=== PATIENT | female | born 1945 | race Caucasian/White ===

== ENCOUNTER 2017-02-09 13:10 | Inpatient (IN) | payer MEDICARE, OTHER ==
[~2017-02-09] VITALS: Ht 157.5 cm; Wt 119.1 kg
[~2017-02-09 13:10] MED LIST: ALLO1POW PO; AMLO10TA4 PO; ASPI-515 PO; BUME0.5T PO; CEFD300C37 PO; FLUO10CA13 PO; GABA100C PO; GABA800T PO; HOME O2 NS; HYDR-3240 PO; LISI-167 PO; SIMV10TA3 PO; SULF1TAB23 PO
[2017-02-09] MEDS ORDERED: LIDOCAINE 1%, 20ML INFIL ONE (14:00)
[2017-02-09] MEDS ORDERED: DIPH,PERTUSS(ACELL),TET VAC/PF 0.5 ML IM-VACC ONE ×2 (14:00→14:07)
[2017-02-09] MEDS ORDERED: LIDOCAINE 1%, 20ML ONE (14:07)
[2017-02-09 14:29] LABS: ASPARTATE AMINO TRANSFERASE 17 U/L (15-37); BLOOD UREA NITROGEN 46 mg/dL (7-18)
[2017-02-09 14:34] LABS: IS PT STATUS REG ER OR PRE ER? YES
[2017-02-09] MEDS ORDERED: BACITRACIN ZINC OINT 500U/GM, 0.9 GM ONE (15:09)
[2017-02-09] MEDS ORDERED: MULT-6 PO (16:29)
[2017-02-09] MEDS ORDERED: ALLO100T64 PO (16:29)
[2017-02-09] MEDS ORDERED: FLUO20TA25 PO (16:29)
[2017-02-09] MEDS ORDERED: CA C1TAB62 PO (16:29)
[2017-02-09] MEDS ORDERED: IRON1TAB62 PO (16:29)
[2017-02-09] MEDS ORDERED: RIVA20TA PO (16:29)
[2017-02-09] MEDS ORDERED: DOCUSATE 100 MG CAPSULE PO PRN (17:30)
[2017-02-09] MEDS ORDERED: HYDROcodone/APAP 5/325 TABLET PO PRN (17:30)
[2017-02-09] MEDS ORDERED: BISACODYL 10 MG SUPP PR PRN (17:30)
[2017-02-09] MEDS ORDERED: ONDANSETRON 2MG/ML, 2ML IVP PRN (17:30)
[2017-02-09] MEDS ORDERED: POLYETHYLENE GLYCOL 17 GM PACKET PO PRN (17:30)
[2017-02-09] MEDS ORDERED: TEMAZEPAM 15 MG CAPSULE PO PRN (17:30)
[2017-02-09] MEDS ORDERED: ACETAMINOPHEN 325 MG TABLET PO PRN (17:30)
[2017-02-09 20:25] VITALS: BP_SYST 142; BP_SYST 151; BP_SYST 153; BP_DIAS 78; BP_DIAS 82; BP_DIAS 88
[2017-02-09] MEDS: SODIUM CHLORIDE FLUSH 10ML SYR IVF SCH (21:00)
[2017-02-09] MEDS ORDERED: GABAPENTIN 400 MG CAPSULE PO SCH (21:00)
[2017-02-09] MEDS: SIMVASTATIN 10 MG TABLET PO SCH (23:17)
[2017-02-09] MEDS: CEFTRIAXONE PMX 1GM/50ML 50 ML IV SCH (23:17)
[2017-02-10 00:31] LABS: IS PT STATUS REG ER OR PRE ER? NO
[2017-02-10 01:10] VITALS: BP_SYST 137; BP_SYST 142; BP_SYST 143; BP_DIAS 77; BP_DIAS 81; BP_DIAS 93
[2017-02-10 06:12] LABS: BLOOD UREA NITROGEN 40 mg/dL (7-18)
[2017-02-10 06:20] LABS: IS PT STATUS REG ER OR PRE ER? NO
[2017-02-10 08:34] VITALS: BP_SYST 126; BP_SYST 135; BP_SYST 146; BP_DIAS 80; BP_DIAS 84; BP_DIAS 89
[2017-02-10] MEDS: FLUOXETINE 20 MG CAPSULE PO SCH (08:59)
[2017-02-10] MEDS: BUMETANIDE 1 MG TABLET PO SCH (08:59)
[2017-02-10] MEDS: CALCIUM CARBONATE 500 MG TABLET PO SCH (08:59)
[2017-02-10] MEDS: ASPIRIN 81 MG TABLET EC PO SCH (08:59)
[2017-02-10] MEDS: ALLOPURINOL 100 MG TABLET PO SCH (08:59)
[2017-02-10] MEDS: MULTIVITAMIN 1 TABLET PO SCH (08:59)
[2017-02-10] MEDS: GABAPENTIN 400 MG CAPSULE PO SCH (09:00)
[2017-02-10] MEDS: SODIUM CHLORIDE FLUSH 10ML SYR IVF SCH ×2 (09:00→21:04)
[2017-02-10] MEDS: RIVAROXABAN 20 MG TABLET PO SCH (11:14)
[2017-02-10 12:55] VITALS: BP 118/64
[2017-02-10 19:13] VITALS: BP_SYST 103; BP_SYST 142; BP_DIAS 52; BP_DIAS 90
[2017-02-10] MEDS ORDERED: GABAPENTIN 100 MG CAPSULE PO SCH (21:00)
[2017-02-10] MEDS: SIMVASTATIN 10 MG TABLET PO SCH (21:04)
[2017-02-10] MEDS: CEFTRIAXONE PMX 1GM/50ML 50 ML IV SCH (23:11)
[2017-02-11 01:43] VITALS: BP 107/69
[2017-02-11 07:02] VITALS: BP_SYST 126; BP_SYST 148; BP_SYST 150; BP_DIAS 79; BP_DIAS 82; BP_DIAS 87
[2017-02-11] MEDS: BUMETANIDE 1 MG TABLET PO SCH (09:00)
[2017-02-11] MEDS: SODIUM CHLORIDE FLUSH 10ML SYR IVF SCH (09:00)
[2017-02-11] MEDS: CALCIUM CARBONATE 500 MG TABLET PO SCH (09:17)
[2017-02-11] MEDS: RIVAROXABAN 20 MG TABLET PO SCH (09:17)
[2017-02-11] MEDS: ALLOPURINOL 100 MG TABLET PO SCH (09:17)
[2017-02-11] MEDS: FLUOXETINE 20 MG CAPSULE PO SCH (09:17)
[2017-02-11] MEDS: MULTIVITAMIN 1 TABLET PO SCH (09:17)
[2017-02-11] MEDS: ASPIRIN 81 MG TABLET EC PO SCH (09:17)
[2017-02-11] MEDS: GABAPENTIN 400 MG CAPSULE PO SCH (09:18)
== END 2017-02-11 13:18 | disposition home or self-care (01) | DRG 74 ==
LOC: ED 16:02 → EDIP 16:03 → ED 16:41 → SUATTDRO 16:42 → 5SO 20:19 → DCLOUNGE 02-11 12:37
PROVIDERS: ADMIT Family Medicine
DX: E11.42 Type 2 diabetes mellitus with diabetic polyneuropathy (principal); D68.69 Other thrombophilia; I13.0 Hypertensive heart and chronic kidney disease with heart failure and stage 1 through stage 4 chronic kidney disease, or unspecified chronic kidney disease; J96.10 Chronic respiratory failure, unspecified whether with hypoxia or hypercapnia; Z68.42 Body mass index [BMI] 45.0-49.9, adult; G90.8 Other disorders of autonomic nervous system; I48.91 Unspecified atrial fibrillation; E78.5 Hyperlipidemia, unspecified; N18.3 Chronic kidney disease, stage 3 (moderate); E11.22 Type 2 diabetes mellitus with diabetic chronic kidney disease; D63.8 Anemia in other chronic diseases classified elsewhere; F17.200 Nicotine dependence, unspecified, uncomplicated; J44.9 Chronic obstructive pulmonary disease, unspecified; I50.9 Heart failure, unspecified; M10.9 Gout, unspecified; E66.01 Morbid (severe) obesity due to excess calories; W18.39XA Other fall on same level, initial encounter; R29.6 Repeated falls; S00.03XA Contusion of scalp, initial encounter; Z91.81 History of falling; Z95.0 Presence of cardiac pacemaker; Z79.01 Long term (current) use of anticoagulants; Y93.89 Activity, other specified; Y92.098 Other place in other non-institutional residence as the place of occurrence of the external cause; Y99.8 Other external cause status; Z90.710 Acquired absence of both cervix and uterus; Z82.49 Family history of ischemic heart disease and other diseases of the circulatory system
CPT/HCPCS: 36415; 70450; 71010; 72125; 80048; 80053; 81001; 82533; 82607; 82746; 83880; 84443; 84484; 85025; 85610; 85730; 87040; 87086; 90471; 90715; 93005; 93880; C8929; J0696

== ENCOUNTER → 2017-04-23 | Outpatient (CLI) | payer MEDICARE, OTHER ==
[~2017-04-23] MED LIST changes: +ALLO100T64 PO; +CA C1TAB62 PO; +FLUO20TA25 PO; +IRON1TAB62 PO; +MULT-6 PO; +OXYC-96 PO; +PROAIR INH; +RIVA20TA PO
== END | disposition home or self-care (01) ==
LOC: PETCFH 13:40
PROVIDERS: ATTEND Internal Medicine
DX: R91.8 Other nonspecific abnormal finding of lung field (principal)
CPT/HCPCS: 78815; A9552

== ENCOUNTER 2017-04-24 07:48 | Day surgery (SDC) | payer MEDICARE, OTHER ==
[~2017-04-24] VITALS: Ht 160 cm; Wt 132.7 kg
[~2017-04-24 07:48] MED LIST changes: -OXYC-96 PO; -PROAIR INH
[2017-04-24 08:48] VITALS: BP 184/96
[2017-04-24] MEDS ORDERED: OXYC-96 PO (09:04)
[2017-04-24] MEDS ORDERED: PROAIR INH (09:04)
[2017-04-24] MEDS ORDERED: LACTATED RINGERS 1,000 ML IV SCH (09:05)
[2017-04-24] MEDS ORDERED: FENTANYL PF 100 MCG/2ML ONE (09:28)
[2017-04-24 09:33] LABS: BLOOD UREA NITROGEN 43 mg/dL (7-18)
[2017-04-24 09:44] LABS: ASPARTATE AMINO TRANSFERASE 18 U/L (15-37)
[2017-04-24] MEDS ORDERED: PROPOFOL 10 MG/ML, 20ML ONE (10:16)
[2017-04-24] MEDS ORDERED: NALOXONE 0.4 MG/ML, 1ML ONE (10:16)
[2017-04-24] MEDS ORDERED: SUCCINYLCHOLINE 20 MG/ML, 10ML ONE (10:16)
[2017-04-24] MEDS ORDERED: ONDANSETRON 2MG/ML, 2ML ONE (10:16)
[2017-04-24] MEDS ORDERED: PHENYLEPHRINE 10 MG/ML ONE (10:16)
[2017-04-24] MEDS ORDERED: DEXAMETHASONE 4 MG/ML, 1ML ONE (10:16)
[2017-04-24] MEDS ORDERED: ONDANSETRON 2MG/ML, 2ML IVPush PRN (11:30)
[2017-04-24] MEDS ORDERED: OXYcodone 5 MG/5 ML ORAL.SOL UDC PO PRN (11:30)
[2017-04-24] MEDS ORDERED: MEPERIDINE/PF 25MG/0.5ML IVPush PRN (11:30)
[2017-04-24] MEDS ORDERED: FENTANYL PF 100 MCG/2ML IV PRN (11:30)
[2017-04-24] MEDS ORDERED: LABETALOL 5MG/ML, 20ML IV PRN (11:30)
[2017-04-24] MEDS ORDERED: HYDROmorphone 1 MG/ML, 1ML IV PRN (11:30)
[2017-04-24] MEDS ORDERED: ALBUTEROL SULFATE 2.5 MG/3 ML NPPB PRN (11:30)
[2017-04-24] MEDS ORDERED: hydrALAzine 20 MG/ML, 1ML IV PRN (11:30)
[2017-04-24] MEDS ORDERED: PROMETHAZINE 25 MG/ML, 1ML IV PRN (11:30)
[2017-04-24] MEDS ORDERED: MIDAZOLAM 1 MG/ML, 2ML IV PRN (11:30)
[2017-04-24] MEDS ORDERED: ALBUTEROL SULFATE 2.5 MG/3 ML ONE (12:54)
== END 2017-04-24 15:40 ==
LOC: OUT 07:48
PROVIDERS: ATTEND Internal Medicine
DX: R91.8 Other nonspecific abnormal finding of lung field (principal); J98.8 Other specified respiratory disorders; E11.22 Type 2 diabetes mellitus with diabetic chronic kidney disease; I12.9 Hypertensive chronic kidney disease with stage 1 through stage 4 chronic kidney disease, or unspecified chronic kidney disease; N18.3 Chronic kidney disease, stage 3 (moderate); E11.40 Type 2 diabetes mellitus with diabetic neuropathy, unspecified; J44.9 Chronic obstructive pulmonary disease, unspecified; E78.5 Hyperlipidemia, unspecified; M10.9 Gout, unspecified; Z95.0 Presence of cardiac pacemaker; Z87.891 Personal history of nicotine dependence; Z99.81 Dependence on supplemental oxygen; Z79.82 Long term (current) use of aspirin
CPT/HCPCS: 31624; 31625; 31626; 31627; 31628; 36415; 71010; 76001; 80053; 82962; 85025; 88112; 88172; 88173; 88177; 88305; 94640; 94660; J0330; J1100; J2310; J2370; J2405; J2704; J3010; J7120

== ENCOUNTER → 2017-06-25 | Outpatient (CLI) | payer MEDICARE, OTHER ==
[~2017-06-25] MED LIST changes: +OXYC-293 PO; +PROAIR INH
== END | disposition home or self-care (01) ==
LOC: PETCFH 09:57
PROVIDERS: ATTEND Internal Medicine
DX: R91.1 Solitary pulmonary nodule (principal); I51.7 Cardiomegaly
CPT/HCPCS: 78815; A9552

== ENCOUNTER 2017-11-20 14:45 | Inpatient (IN) | payer MEDICARE, OTHER ==
[~2017-11-20] VITALS: Ht 157.5 cm; Wt 134.4 kg
[2017-11-20] MEDS ORDERED: ALBU18HF INH (15:06)
[2017-11-20] MEDS ORDERED: NYST1000 PO (15:06)
[2017-11-20] MEDS ORDERED: FAMO-79 PO (15:06)
[2017-11-20] MEDS ORDERED: BISA10SU2 PR (15:06)
[2017-11-20] MEDS ORDERED: FERR324T8 PO (15:06)
[2017-11-20] MEDS ORDERED: ONDA4TAB13 SL (15:06)
[2017-11-20] MEDS ORDERED: OXYM15SP8 NAS (15:06)
[2017-11-20] MEDS ORDERED: POTA99TA24 PO (15:06)
[2017-11-20] MEDS ORDERED: AMLO10TA2 PO (15:06)
[2017-11-20] MEDS ORDERED: ACET-1757 PO (15:06)
[2017-11-20] MEDS ORDERED: METO25TA35 PO (15:06)
[2017-11-20 15:22] LABS: BASOPHILS # (AUTO) 0.09 x10^3/uL (0-0.1); BASOPHILS % (AUTO) 1 % (0-1); EOSINOPHILS # (AUTO) 0.01 x10^3/uL (0-0.4); EOSINOPHILS % (AUTO) 0 % (1-7); LYMPHOCYTES # (AUTO) 0.97 x10^3/uL (1-3.4); LYMPHOCYTES % (AUTO) 16 % (22-44); MD NO; MEAN CORPUSCULAR HEMOGLOBIN 28.4 pg (27.0-34.8); MEAN CORPUSCULAR HGB CONC 32.1 g/dL (32.4-35.8); MEAN CORPUSCULAR VOLUME 88.3 fL (80-100); MEAN PLATELET VOLUME 8.2 fL (7.4-10.4); MONOCYTES # (AUTO) 0.66 x10^3/uL (0.2-0.8); MONOCYTES % (AUTO) 11 % (2-9); NEUTROPHILS # (AUTO) 4.32 x10^3/uL (1.8-6.8); NEUTROPHILS % (AUTO) 72 % (42-75); PLATELET COUNT 239 x10^3/uL (130-400); RED BLOOD COUNT 3.11 x10^6/uL (3.82-5.3); RED CELL DISTRIBUTION WIDTH 19.1 % (9.6-15.2)
[2017-11-20 15:30] LABS: INTERNATIONAL NORMALIZED RATIO 1.03 (0.93-1.1); PROTHROMBIN TIME 10.6 Seconds (9.6-11.5)
[2017-11-20] MEDS ORDERED: SODIUM CHLORIDE FLUSH 10ML SYR IVF ONE (15:30)
[2017-11-20 15:34] LABS: ALBUMIN 2.7 g/dL (3.4-5.0); ANION GAP 4 mmol/L (5-15); CALCIUM 8.6 mg/dL (8.5-10.1); CHLORIDE 107 mmol/L (98-107)
[2017-11-20 15:40] LABS: ALANINE AMINOTRANSFERASE 14 U/L (12-78); ALKALINE PHOSPHATASE 113 U/L (45-117); BILIRUBIN,TOTAL 0.3 mg/dL (0.2-1.0); CREATININE 2.07 mg/dL (0.55-1.02); TOTAL PROTEIN 7.5 g/dL (6.4-8.2); TROPONIN I 0.065 ng/mL (0.000-0.045)
[2017-11-20 15:47] LABS: MICROSCOPIC INDICATED
[2017-11-20 16:00] LABS: CULTURE INDICATED? NO
[2017-11-20] MEDS ORDERED: HYDROcodone/APAP 5/325 TABLET PO PRN (17:30)
[2017-11-20] MEDS ORDERED: ACETAMINOPHEN 325 MG TABLET PO PRN (17:30)
[2017-11-20] MEDS ORDERED: hydrALAzine 20 MG/ML, 1ML IVPush PRN (17:30)
[2017-11-20] MEDS ORDERED: TEMAZEPAM 15 MG CAPSULE PO PRN (17:30)
[2017-11-20] MEDS ORDERED: HEPARIN 5,000 UNITS/ML, 1ML SQ SCH (17:30)
[2017-11-20] MEDS ORDERED: ONDANSETRON 2MG/ML, 2ML IVPush PRN (17:30)
[2017-11-20] MEDS ORDERED: morphine SULFATE 10 MG/ML, 1ML IVPush PRN (17:30)
[2017-11-20] MEDS ORDERED: POLYETHYLENE GLYCOL 17 GM PACKET PO PRN (17:30)
[2017-11-20] MEDS ORDERED: FUROSEMIDE 20 MG/2 ML ONE (17:49)
[2017-11-20] MEDS ORDERED: POTASSIUM CHLORIDE 20 MEQ TAB.ER.PRT ONE (17:49)
[2017-11-20] MEDS ORDERED: HEPARIN 5,000 UNITS/ML, 1ML ONE (17:49)
[2017-11-20] MEDS: FUROSEMIDE 20 MG/2 ML IV SCH (17:52)
[2017-11-20] MEDS: POTASSIUM CHLORIDE 20 MEQ TAB.ER.PRT PO SCH (17:52)
[2017-11-20 18:01] LABS: FREE T4 (FREE THYROXINE) 1.01 ng/dL (0.76-1.46); THYROID STIMULATING HORMONE 2.96 mIU/L (0.358-3.740)
[2017-11-20 18:49] VITALS: BP 104/60
[2017-11-20] MEDS: FERROUS GLUCONATE 324 MG TABLET PO SCH ×2 (21:00→22:11)
[2017-11-20] MEDS: GABAPENTIN 300 MG CAPSULE PO SCH ×2 (21:00→22:11)
[2017-11-20] MEDS ORDERED: GABAPENTIN 1000 MG PO SCH (21:00)
[2017-11-20] MEDS: SIMVASTATIN 10 MG TABLET PO SCH (21:00)
[2017-11-20] MEDS ORDERED: SIMVASTATIN 5 MG TABLET ONE (22:06)
[2017-11-20 22:40] LABS: TROPONIN I 0.074 ng/mL (0.000-0.045)
[2017-11-21 01:27] VITALS: BP 122/72
[2017-11-21 04:41] LABS: BASOPHILS # (AUTO) 0.05 x10^3/uL (0-0.1); BASOPHILS % (AUTO) 1 % (0-1); EOSINOPHILS # (AUTO) 0.14 x10^3/uL (0-0.4); EOSINOPHILS % (AUTO) 3 % (1-7); LYMPHOCYTES # (AUTO) 1.13 x10^3/uL (1-3.4); LYMPHOCYTES % (AUTO) 24 % (22-44); MD NO; MEAN CORPUSCULAR HEMOGLOBIN 28.5 pg (27.0-34.8); MEAN CORPUSCULAR HGB CONC 31.4 g/dL (32.4-35.8); MEAN CORPUSCULAR VOLUME 90.7 fL (80-100); MEAN PLATELET VOLUME 8.4 fL (7.4-10.4); MONOCYTES # (AUTO) 0.53 x10^3/uL (0.2-0.8); MONOCYTES % (AUTO) 11 % (2-9); NEUTROPHILS # (AUTO) 2.86 x10^3/uL (1.8-6.8); NEUTROPHILS % (AUTO) 61 % (42-75); PLATELET COUNT 194 x10^3/uL (130-400); RED BLOOD COUNT 2.79 x10^6/uL (3.82-5.3); RED CELL DISTRIBUTION WIDTH 19.1 % (9.6-15.2)
[2017-11-21 04:51] LABS: ALBUMIN 2.3 g/dL (3.4-5.0); ANION GAP 5 mmol/L (5-15); CHLORIDE 108 mmol/L (98-107)
[2017-11-21 04:56] LABS: ALANINE AMINOTRANSFERASE 13 U/L (12-78); ALKALINE PHOSPHATASE 98 U/L (45-117); BILIRUBIN,TOTAL 0.2 mg/dL (0.2-1.0); TOTAL PROTEIN 6.6 g/dL (6.4-8.2); TROPONIN I 0.078 ng/mL (0.000-0.045)
[2017-11-21 05:24] VITALS: BP 106/64
[2017-11-21] MEDS: METOPROLOL SUCCINATE 25 MG TAB.ER.24H PO SCH (05:28)
[2017-11-21 07:38] VITALS: BP 146/58
[2017-11-21] MEDS ORDERED: GABAPENTIN 100 MG CAPSULE PO SCH (09:00)
[2017-11-21] MEDS: GABAPENTIN 300 MG CAPSULE PO SCH ×2 (10:00→22:21)
[2017-11-21] MEDS: FLUOXETINE HCL 20 MG CAPSULE PO SCH (10:00)
[2017-11-21] MEDS: RIVAROXABAN 20 MG TABLET PO SCH (10:00)
[2017-11-21] MEDS: ASPIRIN 81 MG TABLET EC PO SCH (10:00)
[2017-11-21] MEDS: ALLOPURINOL 100 MG TABLET PO SCH (10:00)
[2017-11-21] MEDS: POTASSIUM CHLORIDE 20 MEQ TAB.ER.PRT PO SCH (10:01)
[2017-11-21] MEDS: FUROSEMIDE 20 MG/2 ML IV SCH (10:01)
[2017-11-21] MEDS: MULTIVITAMIN 1 TABLET PO SCH (10:01)
[2017-11-21] MEDS: FERROUS GLUCONATE 324 MG TABLET PO SCH ×2 (10:01→22:20)
[2017-11-21] MEDS: FAMOTIDINE 20 MG TABLET PO SCH (10:01)
[2017-11-21 13:38] VITALS: BP 105/68
[2017-11-21 20:10] VITALS: BP 145/82
[2017-11-21] MEDS: SIMVASTATIN 10 MG TABLET PO SCH (21:00)
[2017-11-21] MEDS ORDERED: SIMVASTATIN 5 MG TABLET ONE (22:07)
[2017-11-22 00:19] VITALS: BP 139/78
[2017-11-22 05:19] LABS: CHLORIDE 108 mmol/L (98-107)
[2017-11-22 05:33] LABS: ANION GAP 7 mmol/L (5-15); CALCIUM 8.1 mg/dL (8.5-10.1); CREATININE 1.96 mg/dL (0.55-1.02)
[2017-11-22] MEDS: METOPROLOL SUCCINATE 25 MG TAB.ER.24H PO SCH (06:05)
[2017-11-22 06:06] VITALS: BP 136/75
[2017-11-22 07:26] VITALS: BP 125/75
[2017-11-22] MEDS: ASPIRIN 81 MG TABLET EC PO SCH (07:53)
[2017-11-22] MEDS: GABAPENTIN 300 MG CAPSULE PO SCH ×2 (07:53→19:58)
[2017-11-22] MEDS: FLUOXETINE HCL 20 MG CAPSULE PO SCH (07:53)
[2017-11-22] MEDS: MULTIVITAMIN 1 TABLET PO SCH (07:54)
[2017-11-22] MEDS: POTASSIUM CHLORIDE 20 MEQ TAB.ER.PRT PO SCH (07:54)
[2017-11-22] MEDS: FAMOTIDINE 20 MG TABLET PO SCH ×2 (07:54→19:59)
[2017-11-22] MEDS: RIVAROXABAN 20 MG TABLET PO SCH (07:54)
[2017-11-22] MEDS: ALLOPURINOL 100 MG TABLET PO SCH (07:54)
[2017-11-22] MEDS: FERROUS GLUCONATE 324 MG TABLET PO SCH ×2 (07:54→19:58)
[2017-11-22] MEDS: FUROSEMIDE 40 MG TABLET PO SCH (07:55)
[2017-11-22 12:25] VITALS: BP 129/73
[2017-11-22 18:29] VITALS: BP 127/79
[2017-11-22] MEDS ORDERED: SIMVASTATIN 5 MG TABLET ONE (19:54)
[2017-11-22] MEDS: SIMVASTATIN 10 MG TABLET PO SCH (19:58)
[2017-11-23 02:58] VITALS: BP 144/82
[2017-11-23] MEDS: METOPROLOL SUCCINATE 25 MG TAB.ER.24H PO SCH (05:38)
[2017-11-23 05:41] VITALS: BP 162/84
[2017-11-23 07:46] VITALS: BP 167/94
[2017-11-23] MEDS ORDERED: GABAPENTIN 400 MG CAPSULE ONE (08:20)
[2017-11-23] MEDS: POTASSIUM CHLORIDE 20 MEQ TAB.ER.PRT PO SCH (08:24)
[2017-11-23] MEDS: GABAPENTIN 400 MG CAPSULE PO SCH (08:24)
[2017-11-23] MEDS: RIVAROXABAN 20 MG TABLET PO SCH (08:24)
[2017-11-23] MEDS: MULTIVITAMIN 1 TABLET PO SCH (08:24)
[2017-11-23] MEDS: FERROUS GLUCONATE 324 MG TABLET PO SCH ×2 (08:24→22:20)
[2017-11-23] MEDS: FUROSEMIDE 40 MG TABLET PO SCH (08:24)
[2017-11-23] MEDS: ALLOPURINOL 100 MG TABLET PO SCH (08:24)
[2017-11-23] MEDS: FLUOXETINE HCL 20 MG CAPSULE PO SCH (08:25)
[2017-11-23] MEDS: ASPIRIN 81 MG TABLET EC PO SCH (08:25)
[2017-11-23] MEDS ORDERED: REGADENOSON 0.4 MG/5 ML SYRINGE ONE (12:26)
[2017-11-23 14:14] VITALS: BP 127/76
[2017-11-23] MEDS ORDERED: GABAPENTIN 100 MG CAPSULE PO SCH (21:00)
[2017-11-23 22:17] VITALS: BP 133/73
[2017-11-23] MEDS: FAMOTIDINE 20 MG TABLET PO SCH (22:19)
[2017-11-23] MEDS: SIMVASTATIN 10 MG TABLET PO SCH (22:20)
[2017-11-24 00:53] VITALS: BP 130/76
[2017-11-24] MEDS: METOPROLOL SUCCINATE 25 MG TAB.ER.24H PO SCH (06:05)
[2017-11-24 07:24] VITALS: BP 148/73
[2017-11-24] MEDS: GABAPENTIN 400 MG CAPSULE PO SCH (07:54)
[2017-11-24] MEDS: POTASSIUM CHLORIDE 20 MEQ TAB.ER.PRT PO SCH (07:55)
[2017-11-24] MEDS: FERROUS GLUCONATE 324 MG TABLET PO SCH (07:55)
[2017-11-24] MEDS: RIVAROXABAN 20 MG TABLET PO SCH (07:55)
[2017-11-24] MEDS: ALLOPURINOL 100 MG TABLET PO SCH (07:55)
[2017-11-24] MEDS: ASPIRIN 81 MG TABLET EC PO SCH (07:55)
[2017-11-24] MEDS: FUROSEMIDE 40 MG TABLET PO SCH (07:55)
[2017-11-24] MEDS: MULTIVITAMIN 1 TABLET PO SCH (07:55)
[2017-11-24] MEDS: FLUOXETINE HCL 20 MG CAPSULE PO SCH (07:55)
[2017-11-24] MEDS ORDERED: FURO40TA6 PO (10:33)
[2017-11-24] MEDS ORDERED: METO25TA91 PO (11:17)
[2017-11-24 14:15] VITALS: BP 130/68
== END 2017-11-24 16:12 | DRG 682 ==
LOC: ED 16:41 → EDIP 16:42 → ED 16:59 → 5SO 18:44
PROVIDERS: ADMIT Internal Medicine Pulmonary Disease; ATTEND Internal Medicine Pulmonary Disease
DX: N17.9 Acute kidney failure, unspecified (principal); E43 Unspecified severe protein-calorie malnutrition; I50.33 Acute on chronic diastolic (congestive) heart failure; J96.10 Chronic respiratory failure, unspecified whether with hypoxia or hypercapnia; I27.20 Pulmonary hypertension, unspecified; E11.21 Type 2 diabetes mellitus with diabetic nephropathy; E11.40 Type 2 diabetes mellitus with diabetic neuropathy, unspecified; D68.59 Other primary thrombophilia; I13.0 Hypertensive heart and chronic kidney disease with heart failure and stage 1 through stage 4 chronic kidney disease, or unspecified chronic kidney disease; Z68.43 Body mass index [BMI] 50.0-59.9, adult; N18.4 Chronic kidney disease, stage 4 (severe); E66.01 Morbid (severe) obesity due to excess calories; I48.91 Unspecified atrial fibrillation; E11.22 Type 2 diabetes mellitus with diabetic chronic kidney disease; E78.5 Hyperlipidemia, unspecified; I25.10 Atherosclerotic heart disease of native coronary artery without angina pectoris; J44.9 Chronic obstructive pulmonary disease, unspecified; F32.9 Major depressive disorder, single episode, unspecified; M10.9 Gout, unspecified; R26.2 Difficulty in walking, not elsewhere classified; K21.9 Gastro-esophageal reflux disease without esophagitis; Z87.891 Personal history of nicotine dependence; Z90.710 Acquired absence of both cervix and uterus; Z95.0 Presence of cardiac pacemaker
CPT/HCPCS: 36415; 71045; 78452; 80048; 80053; 81001; 83735; 83880; 84100; 84439; 84443; 84484; 85025; 85610; 85730; 93005; 93017; 93306; 96372; J1644; J2785; A9502; C9898; J1940

== ENCOUNTER 2017-12-06 08:55 | Inpatient (IN) | payer MEDICARE, OTHER ==
[~2017-12-06] VITALS: Ht 157.5 cm; Wt 122.8 kg
[~2017-12-06 08:55] MED LIST changes: +ACET-1757 PO; +ALBU18HF INH; +AMLO10TA2 PO; +BISA10SU2 PR; +FAMO-79 PO; +FERR324T8 PO; +FURO40TA6 PO; +METO25TA35 PO; +METO25TA91 PO; +NYST1000 PO; +ONDA4TAB13 SL; +OXYM15SP8 NAS; +POTA99TA24 PO
[2017-12-06] MEDS ORDERED: SODIUM CHLORIDE FLUSH 10ML SYR IVF ONE (09:30)
[2017-12-06 09:37] LABS: BASOPHILS # (AUTO) 0.02 x10^3/uL (0-0.1); BASOPHILS % (AUTO) 0 % (0-1); EOSINOPHILS % (AUTO) 1 % (1-7); LYMPHOCYTES # (AUTO) 0.53 x10^3/uL (1-3.4); LYMPHOCYTES % (AUTO) 7 % (22-44); MD NO; MEAN CORPUSCULAR HEMOGLOBIN 28.5 pg (27.0-34.8); MEAN CORPUSCULAR HGB CONC 31.4 g/dL (32.4-35.8); MEAN CORPUSCULAR VOLUME 90.8 fL (80-100); MEAN PLATELET VOLUME 8.2 fL (7.4-10.4); MONOCYTES # (AUTO) 0.26 x10^3/uL (0.2-0.8); MONOCYTES % (AUTO) 3 % (2-9); NEUTROPHILS # (AUTO) 6.87 x10^3/uL (1.8-6.8); NEUTROPHILS % (AUTO) 89 % (42-75); PLATELET COUNT 262 x10^3/uL (130-400); RED BLOOD COUNT 2.99 x10^6/uL (3.82-5.3); RED CELL DISTRIBUTION WIDTH 18.9 % (9.6-15.2)
[2017-12-06 09:43] LABS: INTERNATIONAL NORMALIZED RATIO 1.02 (0.93-1.1); PROTHROMBIN TIME 10.5 Seconds (9.6-11.5)
[2017-12-06 09:47] LABS: ALBUMIN 2.5 g/dL (3.4-5.0); ANION GAP 4 mmol/L (5-15); CALCIUM 8.2 mg/dL (8.5-10.1); CHLORIDE 112 mmol/L (98-107); CREATININE 1.74 mg/dL (0.55-1.02)
[2017-12-06 09:51] LABS: TROPONIN I 0.035 ng/mL (0.000-0.045)
[2017-12-06 11:50] LABS: MICROSCOPIC AUTO
[2017-12-06 11:56] LABS: CULTURE INDICATED? NO
[2017-12-06] MEDS ORDERED: FUROSEMIDE 40 MG/4 ML IV ONE (12:00)
[2017-12-06] MEDS ORDERED: FUROSEMIDE 40 MG/4 ML ONE (12:31)
[2017-12-06] MEDS ORDERED: BISACODYL 10 MG SUPP PR PRN (13:00)
[2017-12-06] MEDS ORDERED: ENOXAPARIN 40 MG/0.4 ML SQ SCH (13:00)
[2017-12-06] MEDS ORDERED: ENALAPRILAT 1.25 MG/ML, 2ML IVPush PRN (13:00)
[2017-12-06] MEDS ORDERED: ACETAMINOPHEN 325 MG TABLET PO PRN (13:00)
[2017-12-06] MEDS ORDERED: ONDANSETRON 2MG/ML, 2ML IVPush PRN (13:00)
[2017-12-06] MEDS ORDERED: OXYcodone IR 5MG TABLET PO PRN (13:00)
[2017-12-06] MEDS ORDERED: POLYETHYLENE GLYCOL 17 GM PACKET PO PRN (13:00)
[2017-12-06] MEDS ORDERED: POTA20TA89 PO (13:34)
[2017-12-06] MEDS ORDERED: HYDR-3237 PO (13:34)
[2017-12-06] MEDS ORDERED: CEPH-368 PO (13:34)
[2017-12-06 13:35] LABS: TROPONIN I 0.032 ng/mL (0.000-0.045)
[2017-12-06] MEDS ORDERED: ENOXAPARIN 40 MG/0.4 ML ONE (13:50)
[2017-12-06] MEDS ORDERED: ALBUTEROL SULFATE 2.5 MG/3 ML NPPB PRN (14:00)
[2017-12-06] MEDS: methylPREDNISolone SOD SUCC 125 MG/2 ML IVPush SCH (16:59)
[2017-12-06 20:53] LABS: TROPONIN I 0.031 ng/mL (0.000-0.045)
[2017-12-06] MEDS: SIMVASTATIN 10 MG TABLET PO SCH (22:07)
[2017-12-06] MEDS: GABAPENTIN 400 MG CAPSULE PO SCH (22:07)
[2017-12-06] MEDS: FERROUS SULFATE 325 MG TABLET PO SCH (22:08)
[2017-12-06] MEDS: GABAPENTIN 100 MG CAPSULE PO SCH (22:08)
[2017-12-06] MEDS: FAMOTIDINE 20 MG TABLET PO SCH (22:16)
[2017-12-07] MEDS: methylPREDNISolone SOD SUCC 125 MG/2 ML IVPush SCH ×3 (00:23→16:45)
[2017-12-07 04:00] VITALS: BP 148/59
[2017-12-07 05:45] LABS: ALBUMIN 2.2 g/dL (3.4-5.0); ANION GAP 6 mmol/L (5-15); CALCIUM 8.1 mg/dL (8.5-10.1); CHLORIDE 111 mmol/L (98-107)
[2017-12-07 05:47] LABS: ALANINE AMINOTRANSFERASE 14 U/L (12-78); ALKALINE PHOSPHATASE 106 U/L (45-117); BILIRUBIN,TOTAL 0.4 mg/dL (0.2-1.0); CREATININE 1.69 mg/dL (0.55-1.02); TOTAL PROTEIN 6.8 g/dL (6.4-8.2)
[2017-12-07 06:00] LABS: BASOPHILS % (AUTO) 0 % (0-1); EOSINOPHILS % (AUTO) 0 % (1-7); LYMPHOCYTES # (AUTO) 0.35 x10^3/uL (1-3.4); LYMPHOCYTES % (AUTO) 7 % (22-44); MD NO; MEAN CORPUSCULAR HEMOGLOBIN 28.6 pg (27.0-34.8); MEAN CORPUSCULAR HGB CONC 31.8 g/dL (32.4-35.8); MEAN PLATELET VOLUME 8.5 fL (7.4-10.4); MONOCYTES # (AUTO) 0.01 x10^3/uL (0.2-0.8); MONOCYTES % (AUTO) 0 % (2-9); NEUTROPHILS # (AUTO) 4.36 x10^3/uL (1.8-6.8); NEUTROPHILS % (AUTO) 92 % (42-75); PLATELET COUNT 232 x10^3/uL (130-400); RED BLOOD COUNT 2.84 x10^6/uL (3.82-5.3); RED CELL DISTRIBUTION WIDTH 18.4 % (9.6-15.2)
[2017-12-07] MEDS: METOPROLOL SUCCINATE 25 MG TAB.ER.24H PO SCH (09:00)
[2017-12-07] MEDS: FLUOXETINE HCL 20 MG CAPSULE PO SCH (09:02)
[2017-12-07] MEDS: SENNA/DOCUSATE TABLET PO SCH (09:02)
[2017-12-07] MEDS: AMLODIPINE 5 MG TABLET PO SCH (09:02)
[2017-12-07] MEDS: GABAPENTIN 400 MG CAPSULE PO SCH ×2 (09:02→21:29)
[2017-12-07] MEDS: ASPIRIN 81 MG TABLET EC PO SCH (09:02)
[2017-12-07] MEDS: FERROUS SULFATE 325 MG TABLET PO SCH ×2 (09:03→21:29)
[2017-12-07] MEDS: ALLOPURINOL 100 MG TABLET PO SCH (09:03)
[2017-12-07] MEDS: RIVAROXABAN 20 MG TABLET PO SCH (09:03)
[2017-12-07] MEDS: FAMOTIDINE 20 MG TABLET PO SCH ×2 (09:03→21:29)
[2017-12-07] MEDS: FUROSEMIDE 20 MG/2 ML IV SCH ×2 (09:05→21:29)
[2017-12-07] MEDS: GABAPENTIN 100 MG CAPSULE PO SCH (21:30)
[2017-12-07] MEDS: SIMVASTATIN 10 MG TABLET PO SCH (21:30)
[2017-12-08 04:00] VITALS: BP 139/63
[2017-12-08 04:54] LABS: BASOPHILS % (AUTO) 0 % (0-1); EOSINOPHILS % (AUTO) 0 % (1-7); LYMPHOCYTES % (AUTO) 7 % (22-44); MD NO; MEAN CORPUSCULAR HEMOGLOBIN 28.7 pg (27.0-34.8); MEAN CORPUSCULAR HGB CONC 31.7 g/dL (32.4-35.8); MEAN CORPUSCULAR VOLUME 90.5 fL (80-100); MEAN PLATELET VOLUME 8.7 fL (7.4-10.4); MONOCYTES # (AUTO) 0.04 x10^3/uL (0.2-0.8); MONOCYTES % (AUTO) 1 % (2-9); NEUTROPHILS # (AUTO) 5.39 x10^3/uL (1.8-6.8); NEUTROPHILS % (AUTO) 93 % (42-75); PLATELET COUNT 283 x10^3/uL (130-400); RED BLOOD COUNT 2.97 x10^6/uL (3.82-5.3); RED CELL DISTRIBUTION WIDTH 18.5 % (9.6-15.2)
[2017-12-08 05:01] LABS: CHLORIDE 110 mmol/L (98-107)
[2017-12-08 05:15] LABS: ALANINE AMINOTRANSFERASE 11 U/L (12-78); ALBUMIN 2.2 g/dL (3.4-5.0); ALKALINE PHOSPHATASE 110 U/L (45-117); ANION GAP 5 mmol/L (5-15); BILIRUBIN,TOTAL 0.5 mg/dL (0.2-1.0); CALCIUM 8.3 mg/dL (8.5-10.1); CREATININE 1.83 mg/dL (0.55-1.02); TOTAL PROTEIN 6.9 g/dL (6.4-8.2)
[2017-12-08] MEDS: SENNA/DOCUSATE TABLET PO SCH (09:00)
[2017-12-08] MEDS: ALLOPURINOL 100 MG TABLET PO SCH (09:25)
[2017-12-08] MEDS: methylPREDNISolone SOD SUCC 125 MG/2 ML IVPush SCH ×2 (09:25)
[2017-12-08] MEDS: FERROUS SULFATE 325 MG TABLET PO SCH ×2 (09:26→21:43)
[2017-12-08] MEDS: ASPIRIN 81 MG TABLET EC PO SCH (09:26)
[2017-12-08] MEDS: METOPROLOL SUCCINATE 25 MG TAB.ER.24H PO SCH (09:26)
[2017-12-08] MEDS: GABAPENTIN 400 MG CAPSULE PO SCH ×2 (09:26→21:43)
[2017-12-08] MEDS: FAMOTIDINE 20 MG TABLET PO SCH (09:26)
[2017-12-08] MEDS: AMLODIPINE 5 MG TABLET PO SCH (09:26)
[2017-12-08] MEDS: FLUOXETINE HCL 20 MG CAPSULE PO SCH (09:26)
[2017-12-08] MEDS: RIVAROXABAN 20 MG TABLET PO SCH (09:27)
[2017-12-08 19:27] VITALS: BP_SYST 140; BP_SYST 157; BP_DIAS 78; BP_DIAS 85
[2017-12-08] MEDS: GABAPENTIN 100 MG CAPSULE PO SCH (21:43)
[2017-12-08] MEDS: SIMVASTATIN 10 MG TABLET PO SCH (21:43)
[2017-12-09 01:35] VITALS: BP 150/78
[2017-12-09 05:18] LABS: BASOPHILS # (AUTO) 0.02 x10^3/uL (0-0.1); BASOPHILS % (AUTO) 0 % (0-1); EOSINOPHILS % (AUTO) 0 % (1-7); LYMPHOCYTES # (AUTO) 0.53 x10^3/uL (1-3.4); LYMPHOCYTES % (AUTO) 7 % (22-44); MD NO; MEAN CORPUSCULAR HEMOGLOBIN 28.2 pg (27.0-34.8); MEAN CORPUSCULAR HGB CONC 31.5 g/dL (32.4-35.8); MEAN CORPUSCULAR VOLUME 89.6 fL (80-100); MEAN PLATELET VOLUME 8.3 fL (7.4-10.4); MONOCYTES # (AUTO) 0.26 x10^3/uL (0.2-0.8); MONOCYTES % (AUTO) 4 % (2-9); NEUTROPHILS # (AUTO) 6.76 x10^3/uL (1.8-6.8); NEUTROPHILS % (AUTO) 89 % (42-75); PLATELET COUNT 301 x10^3/uL (130-400); RED BLOOD COUNT 3.08 x10^6/uL (3.82-5.3)
[2017-12-09 05:35] LABS: ANION GAP 5 mmol/L (5-15); CALCIUM 8.4 mg/dL (8.5-10.1); CHLORIDE 108 mmol/L (98-107); CREATININE 2.04 mg/dL (0.55-1.02)
[2017-12-09 07:41] VITALS: BP 145/72
[2017-12-09] MEDS: FAMOTIDINE 20 MG TABLET PO SCH (10:47)
[2017-12-09] MEDS: GABAPENTIN 400 MG CAPSULE PO SCH ×2 (10:47→20:13)
[2017-12-09] MEDS: METOPROLOL SUCCINATE 25 MG TAB.ER.24H PO SCH (10:47)
[2017-12-09] MEDS: ALLOPURINOL 100 MG TABLET PO SCH (10:47)
[2017-12-09] MEDS: ASPIRIN 81 MG TABLET EC PO SCH (10:48)
[2017-12-09] MEDS: RIVAROXABAN 20 MG TABLET PO SCH (10:48)
[2017-12-09] MEDS: AMLODIPINE 5 MG TABLET PO SCH (10:48)
[2017-12-09] MEDS: FERROUS SULFATE 325 MG TABLET PO SCH ×2 (10:48→20:12)
[2017-12-09] MEDS: SENNA/DOCUSATE TABLET PO SCH (10:48)
[2017-12-09] MEDS: FLUOXETINE HCL 20 MG CAPSULE PO SCH (10:48)
[2017-12-09 13:02] VITALS: BP 159/89
[2017-12-09 19:16] VITALS: BP 147/77
[2017-12-09] MEDS: SIMVASTATIN 10 MG TABLET PO SCH (20:13)
[2017-12-09] MEDS: GABAPENTIN 100 MG CAPSULE PO SCH (20:13)
[2017-12-10 03:00] VITALS: BP 157/77
[2017-12-10 07:59] VITALS: BP 167/84
[2017-12-10] MEDS: SENNA/DOCUSATE TABLET PO SCH (08:01)
[2017-12-10] MEDS: GABAPENTIN 400 MG CAPSULE PO SCH ×2 (08:03→20:18)
[2017-12-10] MEDS: FLUOXETINE HCL 20 MG CAPSULE PO SCH (08:04)
[2017-12-10] MEDS: ALLOPURINOL 100 MG TABLET PO SCH (08:04)
[2017-12-10] MEDS: FAMOTIDINE 20 MG TABLET PO SCH (08:05)
[2017-12-10] MEDS: METOPROLOL SUCCINATE 25 MG TAB.ER.24H PO SCH (08:05)
[2017-12-10] MEDS: RIVAROXABAN 20 MG TABLET PO SCH (08:05)
[2017-12-10] MEDS: AMLODIPINE 5 MG TABLET PO SCH (08:05)
[2017-12-10] MEDS: FERROUS SULFATE 325 MG TABLET PO SCH ×2 (08:05→20:18)
[2017-12-10] MEDS: ASPIRIN 81 MG TABLET EC PO SCH (08:05)
[2017-12-10 08:53] LABS: ANION GAP 3 mmol/L (5-15); CALCIUM 8.2 mg/dL (8.5-10.1); CHLORIDE 111 mmol/L (98-107); CREATININE 1.99 mg/dL (0.55-1.02)
[2017-12-10 14:30] VITALS: BP 136/82
[2017-12-10 19:02] VITALS: BP 157/76
[2017-12-10] MEDS: GABAPENTIN 100 MG CAPSULE PO SCH (20:17)
[2017-12-10] MEDS: SIMVASTATIN 10 MG TABLET PO SCH (20:18)
[2017-12-11 01:56] VITALS: BP 164/76
[2017-12-11 08:29] VITALS: BP 172/76
[2017-12-11] MEDS: FLUOXETINE HCL 20 MG CAPSULE PO SCH (09:39)
[2017-12-11] MEDS: SENNA/DOCUSATE TABLET PO SCH (09:40)
[2017-12-11] MEDS: GABAPENTIN 400 MG CAPSULE PO SCH ×2 (09:40→21:08)
[2017-12-11] MEDS: AMLODIPINE 5 MG TABLET PO SCH (09:40)
[2017-12-11] MEDS: ALLOPURINOL 100 MG TABLET PO SCH (09:40)
[2017-12-11] MEDS: METOPROLOL SUCCINATE 25 MG TAB.ER.24H PO SCH (09:40)
[2017-12-11] MEDS: FERROUS SULFATE 325 MG TABLET PO SCH ×2 (09:41→21:08)
[2017-12-11] MEDS: RIVAROXABAN 20 MG TABLET PO SCH (09:41)
[2017-12-11] MEDS: FAMOTIDINE 20 MG TABLET PO SCH (09:41)
[2017-12-11] MEDS: ASPIRIN 81 MG TABLET EC PO SCH (09:41)
[2017-12-11 14:57] VITALS: BP 127/75
[2017-12-11] MEDS ORDERED: ONDANSETRON ODT 4 MG ONE (17:46)
[2017-12-11] MEDS: SIMVASTATIN 10 MG TABLET PO SCH (21:08)
[2017-12-11] MEDS: GABAPENTIN 100 MG CAPSULE PO SCH (21:08)
[2017-12-11 21:28] VITALS: BP 120/78
[2017-12-12 03:47] VITALS: BP 122/82
[2017-12-12 07:43] VITALS: BP 126/80
[2017-12-12] MEDS: SENNA/DOCUSATE TABLET PO SCH (09:00)
[2017-12-12] MEDS: METOPROLOL SUCCINATE 25 MG TAB.ER.24H PO SCH ×2 (09:00→12:02)
[2017-12-12] MEDS: AMLODIPINE 5 MG TABLET PO SCH (11:56)
[2017-12-12] MEDS: RIVAROXABAN 20 MG TABLET PO SCH (11:56)
[2017-12-12] MEDS: FLUOXETINE HCL 20 MG CAPSULE PO SCH (11:56)
[2017-12-12] MEDS: ASPIRIN 81 MG TABLET EC PO SCH (11:56)
[2017-12-12] MEDS: FAMOTIDINE 20 MG TABLET PO SCH (11:56)
[2017-12-12] MEDS: FERROUS SULFATE 325 MG TABLET PO SCH ×2 (11:57→21:17)
[2017-12-12] MEDS: ALLOPURINOL 100 MG TABLET PO SCH (11:57)
[2017-12-12] MEDS: GABAPENTIN 400 MG CAPSULE PO SCH ×2 (12:02→21:17)
[2017-12-12 15:45] VITALS: BP 104/62
[2017-12-12 20:03] VITALS: BP 112/69
[2017-12-12] MEDS: GABAPENTIN 100 MG CAPSULE PO SCH (21:17)
[2017-12-12] MEDS: SIMVASTATIN 10 MG TABLET PO SCH (21:17)
[2017-12-13 00:59] VITALS: BP 107/73
[2017-12-13 07:18] VITALS: BP 112/73
[2017-12-13] MEDS: FERROUS SULFATE 325 MG TABLET PO SCH ×2 (08:44→20:53)
[2017-12-13] MEDS: ASPIRIN 81 MG TABLET EC PO SCH (08:44)
[2017-12-13] MEDS: GABAPENTIN 400 MG CAPSULE PO SCH ×2 (08:44→20:53)
[2017-12-13] MEDS: AMLODIPINE 5 MG TABLET PO SCH (08:45)
[2017-12-13] MEDS: FLUOXETINE HCL 20 MG CAPSULE PO SCH (08:45)
[2017-12-13] MEDS: RIVAROXABAN 20 MG TABLET PO SCH (08:45)
[2017-12-13] MEDS: FAMOTIDINE 20 MG TABLET PO SCH (08:45)
[2017-12-13] MEDS: METOPROLOL SUCCINATE 25 MG TAB.ER.24H PO SCH (08:46)
[2017-12-13] MEDS: ALLOPURINOL 100 MG TABLET PO SCH (08:51)
[2017-12-13] MEDS: SENNA/DOCUSATE TABLET PO SCH (08:51)
[2017-12-13 12:41] VITALS: BP 108/75
[2017-12-13 19:35] VITALS: BP 119/80
[2017-12-13] MEDS: SIMVASTATIN 10 MG TABLET PO SCH (20:53)
[2017-12-13] MEDS: GABAPENTIN 100 MG CAPSULE PO SCH (21:00)
[2017-12-14 02:00] VITALS: BP 105/65
[2017-12-14 07:02] VITALS: BP 108/71
[2017-12-14] MEDS: SENNA/DOCUSATE TABLET PO SCH (09:00)
[2017-12-14] MEDS: METOPROLOL SUCCINATE 25 MG TAB.ER.24H PO SCH (09:53)
[2017-12-14] MEDS: RIVAROXABAN 20 MG TABLET PO SCH (09:54)
[2017-12-14] MEDS: FLUOXETINE HCL 20 MG CAPSULE PO SCH (09:54)
[2017-12-14] MEDS: FERROUS SULFATE 325 MG TABLET PO SCH ×2 (09:54→20:24)
[2017-12-14] MEDS: AMLODIPINE 5 MG TABLET PO SCH (09:54)
[2017-12-14] MEDS: GABAPENTIN 400 MG CAPSULE PO SCH ×2 (09:54→20:24)
[2017-12-14] MEDS: ALLOPURINOL 100 MG TABLET PO SCH (09:54)
[2017-12-14] MEDS: FAMOTIDINE 20 MG TABLET PO SCH (09:54)
[2017-12-14] MEDS: ASPIRIN 81 MG TABLET EC PO SCH (09:54)
[2017-12-14 12:17] VITALS: BP 112/74
[2017-12-14 20:00] VITALS: BP 119/79
[2017-12-14] MEDS: SIMVASTATIN 10 MG TABLET PO SCH (20:23)
[2017-12-14] MEDS: GABAPENTIN 100 MG CAPSULE PO SCH (20:24)
[2017-12-15 02:24] VITALS: BP 119/84
[2017-12-15 05:23] LABS: CREATININE 2.35 mg/dL (0.55-1.02)
[2017-12-15 07:03] VITALS: BP 111/70
[2017-12-15] MEDS: METOPROLOL SUCCINATE 25 MG TAB.ER.24H PO SCH (07:45)
[2017-12-15] MEDS: SENNA/DOCUSATE TABLET PO SCH (07:45)
[2017-12-15] MEDS: GABAPENTIN 400 MG CAPSULE PO SCH ×2 (07:45→22:02)
[2017-12-15] MEDS: RIVAROXABAN 20 MG TABLET PO SCH (07:46)
[2017-12-15] MEDS: AMLODIPINE 5 MG TABLET PO SCH (07:46)
[2017-12-15] MEDS: FLUOXETINE HCL 20 MG CAPSULE PO SCH (07:46)
[2017-12-15] MEDS: ASPIRIN 81 MG TABLET EC PO SCH (07:46)
[2017-12-15] MEDS: FAMOTIDINE 20 MG TABLET PO SCH (07:46)
[2017-12-15] MEDS: ALLOPURINOL 100 MG TABLET PO SCH (07:46)
[2017-12-15] MEDS: FERROUS SULFATE 325 MG TABLET PO SCH ×2 (09:05→22:02)
[2017-12-15 12:45] VITALS: BP 92/63
[2017-12-15 19:22] VITALS: BP 115/81
[2017-12-15] MEDS: GABAPENTIN 100 MG CAPSULE PO SCH (22:02)
[2017-12-15] MEDS: SIMVASTATIN 10 MG TABLET PO SCH (22:03)
[2017-12-16 02:44] VITALS: BP 108/73
[2017-12-16 06:46] VITALS: BP 105/77
[2017-12-16] MEDS: ALLOPURINOL 100 MG TABLET PO SCH (08:37)
[2017-12-16] MEDS: RIVAROXABAN 20 MG TABLET PO SCH (08:37)
[2017-12-16] MEDS: FERROUS SULFATE 325 MG TABLET PO SCH ×2 (08:37→20:44)
[2017-12-16] MEDS: FLUOXETINE HCL 20 MG CAPSULE PO SCH (08:38)
[2017-12-16] MEDS: FAMOTIDINE 20 MG TABLET PO SCH (08:38)
[2017-12-16] MEDS: ASPIRIN 81 MG TABLET EC PO SCH (08:38)
[2017-12-16] MEDS: GABAPENTIN 400 MG CAPSULE PO SCH ×2 (08:38→20:48)
[2017-12-16] MEDS: AMLODIPINE 5 MG TABLET PO SCH (08:38)
[2017-12-16] MEDS: METOPROLOL SUCCINATE 25 MG TAB.ER.24H PO SCH (08:38)
[2017-12-16] MEDS: SENNA/DOCUSATE TABLET PO SCH (08:40)
[2017-12-16 12:34] VITALS: BP 105/75
[2017-12-16 18:26] LABS: ANION GAP 6 mmol/L (5-15); CALCIUM 7.6 mg/dL (8.5-10.1); CHLORIDE 105 mmol/L (98-107); CREATININE 2.41 mg/dL (0.55-1.02)
[2017-12-16 18:29] LABS: TROPONIN I 0.043 ng/mL (0.000-0.045)
[2017-12-16 19:22] VITALS: BP 116/83
[2017-12-16] MEDS: GABAPENTIN 100 MG CAPSULE PO SCH (20:44)
[2017-12-16] MEDS: SIMVASTATIN 10 MG TABLET PO SCH (20:44)
[2017-12-17 01:08] VITALS: BP 120/80
[2017-12-17 05:32] LABS: ANION GAP 7 mmol/L (5-15); CHLORIDE 105 mmol/L (98-107)
[2017-12-17 05:35] LABS: CREATININE 2.55 mg/dL (0.55-1.02)
[2017-12-17 07:06] VITALS: BP 116/80
[2017-12-17] MEDS ORDERED: PHARMACY MAY ADJ FOR RENAL FX MC PRN (08:30)
[2017-12-17] MEDS ORDERED: SODIUM CHLORIDE 0.9% 1,000 ML IV SCH (08:32)
[2017-12-17] MEDS: SENNA/DOCUSATE TABLET PO SCH (09:00)
[2017-12-17] MEDS: RIVAROXABAN 20 MG TABLET PO SCH (09:22)
[2017-12-17] MEDS: GABAPENTIN 400 MG CAPSULE PO SCH ×2 (09:22→20:08)
[2017-12-17] MEDS: ASPIRIN 81 MG TABLET EC PO SCH (09:22)
[2017-12-17] MEDS: FAMOTIDINE 20 MG TABLET PO SCH (09:23)
[2017-12-17] MEDS: ALLOPURINOL 100 MG TABLET PO SCH (09:23)
[2017-12-17] MEDS: METOPROLOL SUCCINATE 25 MG TAB.ER.24H PO SCH (09:23)
[2017-12-17] MEDS: AMLODIPINE 5 MG TABLET PO SCH (09:23)
[2017-12-17] MEDS: FERROUS SULFATE 325 MG TABLET PO SCH ×2 (09:24→20:08)
[2017-12-17] MEDS: FLUOXETINE HCL 20 MG CAPSULE PO SCH (09:44)
[2017-12-17 13:43] VITALS: BP 127/72
[2017-12-17 16:29] LABS: ANION GAP 7 mmol/L (5-15); CHLORIDE 106 mmol/L (98-107); CREATININE 2.42 mg/dL (0.55-1.02)
[2017-12-17 19:40] VITALS: BP 116/74
[2017-12-17] MEDS: SIMVASTATIN 10 MG TABLET PO SCH (20:07)
[2017-12-17] MEDS: GABAPENTIN 100 MG CAPSULE PO SCH (20:08)
[2017-12-18 02:51] VITALS: BP 119/77
[2017-12-18 05:16] LABS: ANION GAP 7 mmol/L (5-15); CALCIUM 8.1 mg/dL (8.5-10.1); CHLORIDE 108 mmol/L (98-107); CREATININE 2.29 mg/dL (0.55-1.02)
[2017-12-18] MEDS ORDERED: SODIUM CHLORIDE 0.9% 1,000 ML IV SCH (08:32)
[2017-12-18 08:48] VITALS: BP 135/71
[2017-12-18] MEDS: GABAPENTIN 400 MG CAPSULE PO SCH ×2 (08:50→20:28)
[2017-12-18] MEDS: AMLODIPINE 5 MG TABLET PO SCH (08:50)
[2017-12-18] MEDS: METOPROLOL SUCCINATE 25 MG TAB.ER.24H PO SCH (08:50)
[2017-12-18] MEDS: FERROUS SULFATE 325 MG TABLET PO SCH ×2 (08:50→20:28)
[2017-12-18] MEDS: RIVAROXABAN 20 MG TABLET PO SCH (08:50)
[2017-12-18] MEDS: FLUOXETINE HCL 20 MG CAPSULE PO SCH (08:50)
[2017-12-18] MEDS: SENNA/DOCUSATE TABLET PO SCH (08:51)
[2017-12-18] MEDS: ALLOPURINOL 100 MG TABLET PO SCH (08:51)
[2017-12-18] MEDS: ASPIRIN 81 MG TABLET EC PO SCH (08:51)
[2017-12-18 09:18] LABS: MICROSCOPIC AUTO
[2017-12-18 09:26] LABS: CULTURE INDICATED? YES
[2017-12-18] MEDS: SODIUM CHLORIDE 0.9% 1,000 ML IV SCH ×2 (10:31→20:28)
[2017-12-18] MEDS: SODIUM CHLORIDE NASAL SPRAY 45ML BOTTLE NAS SCH ×2 (10:43→20:28)
[2017-12-18 13:31] VITALS: BP 119/84
[2017-12-18 19:11] VITALS: BP 117/76
[2017-12-18] MEDS: GABAPENTIN 100 MG CAPSULE PO SCH (20:28)
[2017-12-18] MEDS: SIMVASTATIN 10 MG TABLET PO SCH (20:28)
[2017-12-19 02:48] VITALS: BP 137/84
[2017-12-19 05:51] LABS: CHLORIDE 108 mmol/L (98-107)
[2017-12-19 06:00] LABS: ANION GAP 7 mmol/L (5-15); CALCIUM 7.9 mg/dL (8.5-10.1); CREATININE 2.17 mg/dL (0.55-1.02)
[2017-12-19 06:51] VITALS: BP 130/79
[2017-12-19] MEDS: SENNA/DOCUSATE TABLET PO SCH (09:00)
[2017-12-19] MEDS: SODIUM CHLORIDE NASAL SPRAY 45ML BOTTLE NAS SCH ×2 (09:29→21:02)
[2017-12-19] MEDS: FERROUS SULFATE 325 MG TABLET PO SCH ×2 (09:30→20:50)
[2017-12-19] MEDS: FLUOXETINE HCL 20 MG CAPSULE PO SCH (09:32)
[2017-12-19] MEDS: METOPROLOL SUCCINATE 25 MG TAB.ER.24H PO SCH (09:34)
[2017-12-19] MEDS: ASPIRIN 81 MG TABLET EC PO SCH (09:34)
[2017-12-19] MEDS: AMLODIPINE 5 MG TABLET PO SCH (09:35)
[2017-12-19] MEDS: GABAPENTIN 400 MG CAPSULE PO SCH ×2 (09:35→20:50)
[2017-12-19] MEDS: RIVAROXABAN 20 MG TABLET PO SCH (09:38)
[2017-12-19] MEDS: ALLOPURINOL 100 MG TABLET PO SCH (09:55)
[2017-12-19 13:34] VITALS: BP 118/81
[2017-12-19] MEDS: SIMVASTATIN 10 MG TABLET PO SCH (20:50)
[2017-12-19] MEDS: GABAPENTIN 100 MG CAPSULE PO SCH (20:50)
[2017-12-19 20:52] VITALS: BP 135/88
[2017-12-20 02:47] VITALS: BP 131/82
[2017-12-20 08:00] VITALS: BP 130/88
[2017-12-20] MEDS: SENNA/DOCUSATE TABLET PO SCH (09:00)
[2017-12-20] MEDS: SODIUM CHLORIDE NASAL SPRAY 45ML BOTTLE NAS SCH ×2 (09:00→21:22)
[2017-12-20] MEDS: FERROUS SULFATE 325 MG TABLET PO SCH ×2 (09:01→21:22)
[2017-12-20] MEDS: GABAPENTIN 400 MG CAPSULE PO SCH ×2 (09:01→21:22)
[2017-12-20] MEDS: ALLOPURINOL 100 MG TABLET PO SCH (09:01)
[2017-12-20] MEDS: METOPROLOL SUCCINATE 25 MG TAB.ER.24H PO SCH (09:01)
[2017-12-20] MEDS: RIVAROXABAN 20 MG TABLET PO SCH (09:02)
[2017-12-20] MEDS: ASPIRIN 81 MG TABLET EC PO SCH (09:02)
[2017-12-20] MEDS: FLUOXETINE HCL 20 MG CAPSULE PO SCH (09:02)
[2017-12-20] MEDS: AMLODIPINE 5 MG TABLET PO SCH (09:02)
[2017-12-20 15:01] VITALS: BP 106/68
[2017-12-20 20:12] VITALS: BP 128/79
[2017-12-20] MEDS: SIMVASTATIN 10 MG TABLET PO SCH (21:21)
[2017-12-20] MEDS: GABAPENTIN 100 MG CAPSULE PO SCH (21:22)
[2017-12-21 01:24] VITALS: BP 116/77
[2017-12-21 05:36] LABS: ANION GAP 7 mmol/L (5-15); CHLORIDE 108 mmol/L (98-107)
[2017-12-21 05:38] LABS: CREATININE 2.03 mg/dL (0.55-1.02)
[2017-12-21 07:03] VITALS: BP 134/64
[2017-12-21] MEDS: SENNA/DOCUSATE TABLET PO SCH (09:00)
[2017-12-21] MEDS: GABAPENTIN 400 MG CAPSULE PO SCH ×2 (09:05→20:30)
[2017-12-21] MEDS: SODIUM CHLORIDE NASAL SPRAY 45ML BOTTLE NAS SCH ×2 (09:05→20:30)
[2017-12-21] MEDS: AMLODIPINE 5 MG TABLET PO SCH (09:05)
[2017-12-21] MEDS: RIVAROXABAN 20 MG TABLET PO SCH (09:05)
[2017-12-21] MEDS: FERROUS SULFATE 325 MG TABLET PO SCH ×2 (09:05→20:30)
[2017-12-21] MEDS: METOPROLOL SUCCINATE 25 MG TAB.ER.24H PO SCH (09:06)
[2017-12-21] MEDS: ASPIRIN 81 MG TABLET EC PO SCH (09:06)
[2017-12-21] MEDS: ALLOPURINOL 100 MG TABLET PO SCH (09:06)
[2017-12-21] MEDS: FLUOXETINE HCL 20 MG CAPSULE PO SCH (09:06)
[2017-12-21 13:53] VITALS: BP 117/73
[2017-12-21 19:16] VITALS: BP 123/78
[2017-12-21] MEDS: SIMVASTATIN 10 MG TABLET PO SCH (20:30)
[2017-12-21] MEDS: GABAPENTIN 100 MG CAPSULE PO SCH (20:30)
[2017-12-22 01:00] VITALS: BP 120/79
[2017-12-22 06:37] VITALS: BP 134/85
[2017-12-22] MEDS: FLUOXETINE HCL 20 MG CAPSULE PO SCH (08:59)
[2017-12-22] MEDS: FERROUS SULFATE 325 MG TABLET PO SCH ×2 (08:59→21:21)
[2017-12-22] MEDS: SENNA/DOCUSATE TABLET PO SCH (09:00)
[2017-12-22] MEDS: GABAPENTIN 400 MG CAPSULE PO SCH ×2 (09:01→21:21)
[2017-12-22] MEDS: RIVAROXABAN 20 MG TABLET PO SCH (09:02)
[2017-12-22] MEDS: ALLOPURINOL 100 MG TABLET PO SCH (09:03)
[2017-12-22] MEDS: ASPIRIN 81 MG TABLET EC PO SCH (09:03)
[2017-12-22] MEDS: AMLODIPINE 5 MG TABLET PO SCH (09:03)
[2017-12-22] MEDS: METOPROLOL SUCCINATE 25 MG TAB.ER.24H PO SCH (09:03)
[2017-12-22 12:57] VITALS: BP 136/91
[2017-12-22] MEDS: SODIUM CHLORIDE NASAL SPRAY 45ML BOTTLE NAS SCH ×2 (14:45→21:20)
[2017-12-22 19:57] VITALS: BP 127/93
[2017-12-22] MEDS: SIMVASTATIN 10 MG TABLET PO SCH (21:20)
[2017-12-22] MEDS: GABAPENTIN 100 MG CAPSULE PO SCH (21:21)
[2017-12-23 02:21] VITALS: BP 126/85
[2017-12-23 08:01] VITALS: BP 121/68
[2017-12-23] MEDS: METOPROLOL SUCCINATE 25 MG TAB.ER.24H PO SCH (09:28)
[2017-12-23] MEDS: FERROUS SULFATE 325 MG TABLET PO SCH ×2 (09:28→20:14)
[2017-12-23] MEDS: SODIUM CHLORIDE NASAL SPRAY 45ML BOTTLE NAS SCH ×2 (09:28→20:15)
[2017-12-23] MEDS: ALLOPURINOL 100 MG TABLET PO SCH (09:28)
[2017-12-23] MEDS: ASPIRIN 81 MG TABLET EC PO SCH (09:28)
[2017-12-23] MEDS: GABAPENTIN 400 MG CAPSULE PO SCH ×2 (09:29→20:14)
[2017-12-23] MEDS: RIVAROXABAN 20 MG TABLET PO SCH (09:29)
[2017-12-23] MEDS: AMLODIPINE 5 MG TABLET PO SCH (09:29)
[2017-12-23] MEDS: FLUOXETINE HCL 20 MG CAPSULE PO SCH (09:29)
[2017-12-23] MEDS: SENNA/DOCUSATE TABLET PO SCH (09:30)
[2017-12-23 14:20] VITALS: BP 117/62
[2017-12-23 19:24] VITALS: BP 119/83
[2017-12-23] MEDS: GABAPENTIN 100 MG CAPSULE PO SCH (20:14)
[2017-12-23] MEDS: SIMVASTATIN 10 MG TABLET PO SCH (20:15)
[2017-12-24 01:37] VITALS: BP 145/90
[2017-12-24 06:51] VITALS: BP 140/87
[2017-12-24] MEDS: RIVAROXABAN 20 MG TABLET PO SCH (11:59)
[2017-12-24] MEDS: FLUOXETINE HCL 20 MG CAPSULE PO SCH (11:59)
[2017-12-24] MEDS: FERROUS SULFATE 325 MG TABLET PO SCH ×2 (11:59→20:18)
[2017-12-24] MEDS: SODIUM CHLORIDE NASAL SPRAY 45ML BOTTLE NAS SCH ×2 (11:59→20:19)
[2017-12-24] MEDS: ALLOPURINOL 100 MG TABLET PO SCH (12:00)
[2017-12-24] MEDS: GABAPENTIN 400 MG CAPSULE PO SCH ×2 (12:00→20:18)
[2017-12-24] MEDS: SENNA/DOCUSATE TABLET PO SCH (12:00)
[2017-12-24] MEDS: AMLODIPINE 5 MG TABLET PO SCH (12:01)
[2017-12-24] MEDS: ASPIRIN 81 MG TABLET EC PO SCH (12:01)
[2017-12-24] MEDS: METOPROLOL SUCCINATE 25 MG TAB.ER.24H PO SCH (12:01)
[2017-12-24 14:37] VITALS: BP 143/83
[2017-12-24 20:00] VITALS: BP 148/98
[2017-12-24] MEDS: SIMVASTATIN 10 MG TABLET PO SCH (20:17)
[2017-12-24] MEDS: GABAPENTIN 100 MG CAPSULE PO SCH (20:18)
[2017-12-25 00:18] VITALS: BP 127/57
[2017-12-25 08:07] VITALS: BP 124/84
[2017-12-25] MEDS ORDERED: FUROSEMIDE 20 MG/2 ML IV ONE (09:00)
[2017-12-25] MEDS: ASPIRIN 81 MG TABLET EC PO SCH (10:29)
[2017-12-25] MEDS: SENNA/DOCUSATE TABLET PO SCH (10:29)
[2017-12-25] MEDS: GABAPENTIN 400 MG CAPSULE PO SCH ×2 (10:29→21:09)
[2017-12-25] MEDS: AMLODIPINE 5 MG TABLET PO SCH (10:29)
[2017-12-25] MEDS: ALLOPURINOL 100 MG TABLET PO SCH (10:29)
[2017-12-25] MEDS: FERROUS SULFATE 325 MG TABLET PO SCH ×2 (10:30→21:08)
[2017-12-25] MEDS: FLUOXETINE HCL 20 MG CAPSULE PO SCH (10:30)
[2017-12-25] MEDS: SODIUM CHLORIDE NASAL SPRAY 45ML BOTTLE NAS SCH ×2 (10:30→21:09)
[2017-12-25] MEDS: RIVAROXABAN 20 MG TABLET PO SCH (10:30)
[2017-12-25] MEDS: FUROSEMIDE 20 MG TABLET PO SCH (10:30)
[2017-12-25] MEDS: METOPROLOL SUCCINATE 25 MG TAB.ER.24H PO SCH (10:30)
[2017-12-25 12:50] VITALS: BP 130/85
[2017-12-25 19:14] VITALS: BP 128/83
[2017-12-25] MEDS: SIMVASTATIN 10 MG TABLET PO SCH (21:08)
[2017-12-25] MEDS: GABAPENTIN 100 MG CAPSULE PO SCH (21:09)
[2017-12-26 02:53] VITALS: BP 117/82
[2017-12-26 05:39] LABS: BASOPHILS # (AUTO) 0.03 x10^3/uL (0-0.1); BASOPHILS % (AUTO) 1 % (0-1); EOSINOPHILS # (AUTO) 0.15 x10^3/uL (0-0.4); EOSINOPHILS % (AUTO) 4 % (1-7); LYMPHOCYTES % (AUTO) 18 % (22-44); MD NO; MEAN CORPUSCULAR HEMOGLOBIN 28.2 pg (27.0-34.8); MEAN CORPUSCULAR HGB CONC 31.9 g/dL (32.4-35.8); MEAN CORPUSCULAR VOLUME 88.5 fL (80-100); MEAN PLATELET VOLUME 9.5 fL (7.4-10.4); MONOCYTES # (AUTO) 0.29 x10^3/uL (0.2-0.8); MONOCYTES % (AUTO) 7 % (2-9); NEUTROPHILS # (AUTO) 2.76 x10^3/uL (1.8-6.8); NEUTROPHILS % (AUTO) 70 % (42-75); PLATELET COUNT 197 x10^3/uL (130-400); RED BLOOD COUNT 2.85 x10^6/uL (3.82-5.3); RED CELL DISTRIBUTION WIDTH 18.2 % (9.6-15.2)
[2017-12-26 05:54] LABS: ANION GAP 8 mmol/L (5-15); CALCIUM 8.1 mg/dL (8.5-10.1); CHLORIDE 108 mmol/L (98-107); CREATININE 2.18 mg/dL (0.55-1.02)
[2017-12-26 06:37] VITALS: BP 124/86
[2017-12-26] MEDS: FERROUS SULFATE 325 MG TABLET PO SCH ×2 (12:26→20:29)
[2017-12-26] MEDS: GABAPENTIN 400 MG CAPSULE PO SCH ×2 (12:26→20:29)
[2017-12-26] MEDS: SENNA/DOCUSATE TABLET PO SCH (12:27)
[2017-12-26] MEDS: RIVAROXABAN 20 MG TABLET PO SCH (12:27)
[2017-12-26] MEDS: METOPROLOL SUCCINATE 25 MG TAB.ER.24H PO SCH (12:27)
[2017-12-26] MEDS: ALLOPURINOL 100 MG TABLET PO SCH (12:27)
[2017-12-26] MEDS: FUROSEMIDE 20 MG TABLET PO SCH (12:27)
[2017-12-26] MEDS: AMLODIPINE 5 MG TABLET PO SCH (12:27)
[2017-12-26] MEDS: ASPIRIN 81 MG TABLET EC PO SCH (12:27)
[2017-12-26] MEDS: FLUOXETINE HCL 20 MG CAPSULE PO SCH (12:27)
[2017-12-26] MEDS: SODIUM CHLORIDE NASAL SPRAY 45ML BOTTLE NAS SCH ×2 (12:28→20:30)
[2017-12-26 13:42] VITALS: BP 93/66
[2017-12-26 19:15] VITALS: BP 129/87
[2017-12-26] MEDS: SIMVASTATIN 10 MG TABLET PO SCH (20:29)
[2017-12-26] MEDS: GABAPENTIN 100 MG CAPSULE PO SCH (20:29)
[2017-12-27 03:21] VITALS: BP 111/71
[2017-12-27 05:48] LABS: BASOPHILS # (AUTO) 0.03 x10^3/uL (0-0.1); BASOPHILS % (AUTO) 1 % (0-1); EOSINOPHILS # (AUTO) 0.19 x10^3/uL (0-0.4); EOSINOPHILS % (AUTO) 4 % (1-7); LYMPHOCYTES # (AUTO) 0.88 x10^3/uL (1-3.4); LYMPHOCYTES % (AUTO) 19 % (22-44); MD NO; MEAN CORPUSCULAR HGB CONC 31.3 g/dL (32.4-35.8); MEAN CORPUSCULAR VOLUME 89.4 fL (80-100); MEAN PLATELET VOLUME 9.1 fL (7.4-10.4); MONOCYTES # (AUTO) 0.29 x10^3/uL (0.2-0.8); MONOCYTES % (AUTO) 6 % (2-9); NEUTROPHILS # (AUTO) 3.34 x10^3/uL (1.8-6.8); NEUTROPHILS % (AUTO) 71 % (42-75); PLATELET COUNT 218 x10^3/uL (130-400); RED BLOOD COUNT 2.96 x10^6/uL (3.82-5.3); RED CELL DISTRIBUTION WIDTH 18.2 % (9.6-15.2)
[2017-12-27 05:53] LABS: ALBUMIN 2.5 g/dL (3.4-5.0); ANION GAP 8 mmol/L (5-15); CALCIUM 8.6 mg/dL (8.5-10.1); CHLORIDE 106 mmol/L (98-107)
[2017-12-27 05:54] LABS: CREATININE 2.14 mg/dL (0.55-1.02)
[2017-12-27 09:53] VITALS: BP 118/77
[2017-12-27] MEDS: SODIUM CHLORIDE NASAL SPRAY 45ML BOTTLE NAS SCH ×2 (09:55→21:55)
[2017-12-27] MEDS: METOPROLOL SUCCINATE 25 MG TAB.ER.24H PO SCH (09:55)
[2017-12-27] MEDS: ALLOPURINOL 100 MG TABLET PO SCH (09:56)
[2017-12-27] MEDS: FERROUS SULFATE 325 MG TABLET PO SCH ×2 (09:56→21:55)
[2017-12-27] MEDS: FUROSEMIDE 20 MG TABLET PO SCH (09:56)
[2017-12-27] MEDS: FLUOXETINE HCL 20 MG CAPSULE PO SCH (09:56)
[2017-12-27] MEDS: RIVAROXABAN 20 MG TABLET PO SCH (09:56)
[2017-12-27] MEDS: GABAPENTIN 400 MG CAPSULE PO SCH ×2 (09:56→21:55)
[2017-12-27] MEDS: SENNA/DOCUSATE TABLET PO SCH (09:56)
[2017-12-27] MEDS: ASPIRIN 81 MG TABLET EC PO SCH (09:56)
[2017-12-27] MEDS: AMLODIPINE 5 MG TABLET PO SCH (09:56)
[2017-12-27 15:23] VITALS: BP 133/92
[2017-12-27 20:00] VITALS: BP_SYST 104; BP_SYST 130; BP_DIAS 61; BP_DIAS 88
[2017-12-27] MEDS: SIMVASTATIN 10 MG TABLET PO SCH (21:55)
[2017-12-27] MEDS: GABAPENTIN 100 MG CAPSULE PO SCH (21:55)
[2017-12-28 01:02] VITALS: BP 112/70
[2017-12-28 01:49] LABS: TROPONIN I 0.025 ng/mL (0.000-0.045)
[2017-12-28] MEDS ORDERED: MAALOX/HYOSCYAMINE/LIDOCAINE 45 ML BTL PO ONE (02:30)
[2017-12-28 05:35] LABS: BASOPHILS # (AUTO) 0.03 x10^3/uL (0-0.1); BASOPHILS % (AUTO) 1 % (0-1); EOSINOPHILS # (AUTO) 0.23 x10^3/uL (0-0.4); EOSINOPHILS % (AUTO) 5 % (1-7); LYMPHOCYTES # (AUTO) 0.94 x10^3/uL (1-3.4); LYMPHOCYTES % (AUTO) 21 % (22-44); MD NO; MEAN CORPUSCULAR HEMOGLOBIN 28.1 pg (27.0-34.8); MEAN CORPUSCULAR HGB CONC 31.2 g/dL (32.4-35.8); MEAN PLATELET VOLUME 8.4 fL (7.4-10.4); MONOCYTES # (AUTO) 0.33 x10^3/uL (0.2-0.8); MONOCYTES % (AUTO) 7 % (2-9); NEUTROPHILS # (AUTO) 2.87 x10^3/uL (1.8-6.8); NEUTROPHILS % (AUTO) 65 % (42-75); PLATELET COUNT 210 x10^3/uL (130-400); RED BLOOD COUNT 2.91 x10^6/uL (3.82-5.3); RED CELL DISTRIBUTION WIDTH 18.6 % (9.6-15.2)
[2017-12-28 05:46] LABS: ALBUMIN 2.4 g/dL (3.4-5.0); ANION GAP 4 mmol/L (5-15); CALCIUM 8.3 mg/dL (8.5-10.1); CHLORIDE 108 mmol/L (98-107); CREATININE 1.92 mg/dL (0.55-1.02)
[2017-12-28 06:05] LABS: TROPONIN I 0.021 ng/mL (0.000-0.045)
[2017-12-28 06:58] VITALS: BP 121/86
[2017-12-28] MEDS: SENNA/DOCUSATE TABLET PO SCH (09:00)
[2017-12-28] MEDS: SODIUM CHLORIDE NASAL SPRAY 45ML BOTTLE NAS SCH ×2 (09:00→21:45)
[2017-12-28] MEDS: ASPIRIN 81 MG TABLET EC PO SCH (09:41)
[2017-12-28] MEDS: ALLOPURINOL 100 MG TABLET PO SCH (09:41)
[2017-12-28] MEDS: FUROSEMIDE 20 MG TABLET PO SCH (09:41)
[2017-12-28] MEDS: FLUOXETINE HCL 20 MG CAPSULE PO SCH (09:42)
[2017-12-28] MEDS: FERROUS SULFATE 325 MG TABLET PO SCH ×2 (09:42→21:46)
[2017-12-28] MEDS: RIVAROXABAN 20 MG TABLET PO SCH (09:43)
[2017-12-28] MEDS: METOPROLOL SUCCINATE 25 MG TAB.ER.24H PO SCH (09:43)
[2017-12-28] MEDS: GABAPENTIN 400 MG CAPSULE PO SCH ×2 (09:43→21:46)
[2017-12-28] MEDS: AMLODIPINE 5 MG TABLET PO SCH (09:47)
[2017-12-28 12:23] VITALS: BP 114/80
[2017-12-28] MEDS: CALCIUM CARBONATE 500 MG TAB.CHEW PO PRN (18:24)
[2017-12-28 19:08] VITALS: BP 133/86
[2017-12-28] MEDS ORDERED: CALCIUM CARBONATE 500 MG TAB.CHEW PO SCH (21:00)
[2017-12-28] MEDS: SIMVASTATIN 10 MG TABLET PO SCH (21:46)
[2017-12-28] MEDS: GABAPENTIN 100 MG CAPSULE PO SCH (21:46)
[2017-12-29 01:15] VITALS: BP 127/76
[2017-12-29 05:31] LABS: ALANINE AMINOTRANSFERASE 10 U/L (12-78); ALBUMIN 2.5 g/dL (3.4-5.0); ANION GAP 5 mmol/L (5-15); CALCIUM 8.4 mg/dL (8.5-10.1); CHLORIDE 108 mmol/L (98-107); CREATININE 1.87 mg/dL (0.55-1.02)
[2017-12-29 05:33] LABS: ALKALINE PHOSPHATASE 103 U/L (45-117); BILIRUBIN,TOTAL 0.4 mg/dL (0.2-1.0); TOTAL PROTEIN 6.2 g/dL (6.4-8.2)
[2017-12-29 05:40] LABS: MEAN CORPUSCULAR HEMOGLOBIN 28.5 pg (27.0-34.8); MEAN CORPUSCULAR HGB CONC 31.8 g/dL (32.4-35.8); MEAN CORPUSCULAR VOLUME 89.7 fL (80-100); PLATELET COUNT 214 x10^3/uL (130-400); RED BLOOD COUNT 2.95 x10^6/uL (3.82-5.3); RED CELL DISTRIBUTION WIDTH 17.9 % (9.6-15.2)
[2017-12-29 06:05] LABS: BASOPHILS # (AUTO) 0.03 x10^3/uL (0-0.1); BASOPHILS % (AUTO) 1 % (0-1); EOSINOPHILS # (AUTO) 0.28 x10^3/uL (0-0.4); EOSINOPHILS % (AUTO) 7 % (1-7); LYMPHOCYTES # (AUTO) 0.85 x10^3/uL (1-3.4); LYMPHOCYTES % (AUTO) 20 % (22-44); MD SCAN; MONOCYTES # (AUTO) 0.37 x10^3/uL (0.2-0.8); MONOCYTES % (AUTO) 9 % (2-9); NEUTROPHILS # (AUTO) 2.79 x10^3/uL (1.8-6.8); NEUTROPHILS % (AUTO) 65 % (42-75)
[2017-12-29 06:55] VITALS: BP 117/84
[2017-12-29] MEDS: ALLOPURINOL 100 MG TABLET PO SCH (10:21)
[2017-12-29] MEDS: SODIUM CHLORIDE NASAL SPRAY 45ML BOTTLE NAS SCH ×2 (10:21→21:51)
[2017-12-29] MEDS: RIVAROXABAN 15 MG TABLET PO SCH (10:21)
[2017-12-29] MEDS: ASPIRIN 81 MG TABLET EC PO SCH (10:21)
[2017-12-29] MEDS: GABAPENTIN 400 MG CAPSULE PO SCH ×2 (10:21→21:49)
[2017-12-29] MEDS: FERROUS SULFATE 325 MG TABLET PO SCH ×2 (10:21→21:48)
[2017-12-29] MEDS: FUROSEMIDE 20 MG TABLET PO SCH (10:21)
[2017-12-29] MEDS: AMLODIPINE 5 MG TABLET PO SCH (10:21)
[2017-12-29] MEDS: FLUOXETINE HCL 20 MG CAPSULE PO SCH (10:22)
[2017-12-29] MEDS: METOPROLOL SUCCINATE 25 MG TAB.ER.24H PO SCH (10:23)
[2017-12-29] MEDS: SENNA/DOCUSATE TABLET PO SCH (10:24)
[2017-12-29 12:40] VITALS: BP 111/74
[2017-12-29] MEDS: CALCIUM CARBONATE 500 MG TAB.CHEW PO PRN (14:52)
[2017-12-29 19:08] VITALS: BP 121/80
[2017-12-29] MEDS: SIMVASTATIN 10 MG TABLET PO SCH (21:48)
[2017-12-29] MEDS: GABAPENTIN 100 MG CAPSULE PO SCH (21:49)
[2017-12-30 01:19] VITALS: BP 126/84
[2017-12-30 07:21] VITALS: BP 122/80
[2017-12-30] MEDS: SENNA/DOCUSATE TABLET PO SCH (08:51)
[2017-12-30] MEDS: RIVAROXABAN 15 MG TABLET PO SCH (08:52)
[2017-12-30] MEDS: FUROSEMIDE 20 MG TABLET PO SCH (08:52)
[2017-12-30] MEDS: FLUOXETINE HCL 20 MG CAPSULE PO SCH (08:52)
[2017-12-30] MEDS: GABAPENTIN 400 MG CAPSULE PO SCH ×2 (08:52→20:21)
[2017-12-30] MEDS: AMLODIPINE 5 MG TABLET PO SCH (08:52)
[2017-12-30] MEDS: ALLOPURINOL 100 MG TABLET PO SCH (08:52)
[2017-12-30] MEDS: ASPIRIN 81 MG TABLET EC PO SCH (08:52)
[2017-12-30] MEDS: FERROUS SULFATE 325 MG TABLET PO SCH ×2 (08:52→20:21)
[2017-12-30] MEDS: METOPROLOL SUCCINATE 25 MG TAB.ER.24H PO SCH (08:52)
[2017-12-30] MEDS: SODIUM CHLORIDE NASAL SPRAY 45ML BOTTLE NAS SCH ×2 (08:53→20:20)
[2017-12-30 12:53] VITALS: BP 104/67
[2017-12-30] MEDS: SIMVASTATIN 10 MG TABLET PO SCH (20:20)
[2017-12-30] MEDS: GABAPENTIN 100 MG CAPSULE PO SCH (20:21)
[2017-12-30 21:17] VITALS: BP 133/84
[2017-12-31 03:44] VITALS: BP 112/72
[2017-12-31 05:39] LABS: ALBUMIN 2.4 g/dL (3.4-5.0); ANION GAP 4 mmol/L (5-15); CALCIUM 8.3 mg/dL (8.5-10.1); CHLORIDE 106 mmol/L (98-107); CREATININE 2.22 mg/dL (0.55-1.02)
[2017-12-31 05:40] LABS: BASOPHILS # (AUTO) 0.02 x10^3/uL (0-0.1); BASOPHILS % (AUTO) 1 % (0-1); EOSINOPHILS # (AUTO) 0.29 x10^3/uL (0-0.4); EOSINOPHILS % (AUTO) 8 % (1-7); LYMPHOCYTES # (AUTO) 0.88 x10^3/uL (1-3.4); LYMPHOCYTES % (AUTO) 24 % (22-44); MD NO; MEAN CORPUSCULAR HEMOGLOBIN 28.8 pg (27.0-34.8); MEAN CORPUSCULAR HGB CONC 32.1 g/dL (32.4-35.8); MEAN CORPUSCULAR VOLUME 89.9 fL (80-100); MEAN PLATELET VOLUME 8.9 fL (7.4-10.4); MONOCYTES # (AUTO) 0.36 x10^3/uL (0.2-0.8); MONOCYTES % (AUTO) 10 % (2-9); NEUTROPHILS # (AUTO) 2.14 x10^3/uL (1.8-6.8); NEUTROPHILS % (AUTO) 58 % (42-75); PLATELET COUNT 214 x10^3/uL (130-400)
[2017-12-31 07:02] VITALS: BP 124/78
[2017-12-31] MEDS: SODIUM CHLORIDE NASAL SPRAY 45ML BOTTLE NAS SCH ×2 (08:26→20:50)
[2017-12-31] MEDS: FERROUS SULFATE 325 MG TABLET PO SCH ×2 (08:26→20:50)
[2017-12-31] MEDS: FUROSEMIDE 20 MG TABLET PO SCH (08:26)
[2017-12-31] MEDS: ASPIRIN 81 MG TABLET EC PO SCH (08:26)
[2017-12-31] MEDS: GABAPENTIN 300 MG CAPSULE PO SCH (08:27)
[2017-12-31] MEDS: RIVAROXABAN 15 MG TABLET PO SCH (08:27)
[2017-12-31] MEDS: AMLODIPINE 5 MG TABLET PO SCH (08:27)
[2017-12-31] MEDS: FLUOXETINE HCL 20 MG CAPSULE PO SCH (08:27)
[2017-12-31] MEDS: ALLOPURINOL 100 MG TABLET PO SCH (08:28)
[2017-12-31] MEDS: SENNA/DOCUSATE TABLET PO SCH (08:28)
[2017-12-31] MEDS: METOPROLOL SUCCINATE 25 MG TAB.ER.24H PO SCH (08:35)
[2017-12-31] MEDS ORDERED: GABAPENTIN 300 MG CAPSULE PO SCH (09:00)
[2017-12-31] MEDS ORDERED: GABAPENTIN 400 MG CAPSULE PO SCH (09:00)
[2017-12-31 13:07] VITALS: BP 127/83
[2017-12-31 19:05] VITALS: BP 107/72
[2017-12-31] MEDS: ATORVASTATIN 10 MG TABLET PO SCH (20:50)
[2017-12-31] MEDS: GABAPENTIN 400 MG CAPSULE PO SCH (20:50)
[2018-01-01 00:06] VITALS: BP 99/69
[2018-01-01 05:35] LABS: BASOPHILS # (AUTO) 0.03 x10^3/uL (0-0.1); BASOPHILS % (AUTO) 1 % (0-1); EOSINOPHILS # (AUTO) 0.31 x10^3/uL (0-0.4); EOSINOPHILS % (AUTO) 8 % (1-7); LYMPHOCYTES # (AUTO) 0.87 x10^3/uL (1-3.4); LYMPHOCYTES % (AUTO) 22 % (22-44); MD NO; MEAN CORPUSCULAR HEMOGLOBIN 29.3 pg (27.0-34.8); MEAN CORPUSCULAR HGB CONC 32.7 g/dL (32.4-35.8); MEAN CORPUSCULAR VOLUME 89.7 fL (80-100); MEAN PLATELET VOLUME 8.9 fL (7.4-10.4); MONOCYTES % (AUTO) 10 % (2-9); NEUTROPHILS # (AUTO) 2.31 x10^3/uL (1.8-6.8); NEUTROPHILS % (AUTO) 59 % (42-75); PLATELET COUNT 211 x10^3/uL (130-400); RED BLOOD COUNT 2.96 x10^6/uL (3.82-5.3); RED CELL DISTRIBUTION WIDTH 18.7 % (9.6-15.2)
[2018-01-01 05:45] LABS: ALBUMIN 2.5 g/dL (3.4-5.0); ANION GAP 6 mmol/L (5-15); CALCIUM 8.4 mg/dL (8.5-10.1); CHLORIDE 105 mmol/L (98-107); CREATININE 1.99 mg/dL (0.55-1.02)
[2018-01-01 07:50] VITALS: BP 113/77
[2018-01-01] MEDS: ASPIRIN 81 MG TABLET EC PO SCH (08:51)
[2018-01-01] MEDS: SODIUM CHLORIDE NASAL SPRAY 45ML BOTTLE NAS SCH ×2 (08:51→20:21)
[2018-01-01] MEDS: FLUOXETINE HCL 20 MG CAPSULE PO SCH (08:52)
[2018-01-01] MEDS: FERROUS SULFATE 325 MG TABLET PO SCH ×2 (08:52→20:21)
[2018-01-01] MEDS: AMLODIPINE 5 MG TABLET PO SCH (08:52)
[2018-01-01] MEDS: GABAPENTIN 300 MG CAPSULE PO SCH (08:52)
[2018-01-01] MEDS: SENNA/DOCUSATE TABLET PO SCH (08:52)
[2018-01-01] MEDS: FUROSEMIDE 20 MG TABLET PO SCH (08:52)
[2018-01-01] MEDS: RIVAROXABAN 15 MG TABLET PO SCH (08:52)
[2018-01-01] MEDS: ALLOPURINOL 100 MG TABLET PO SCH (08:53)
[2018-01-01] MEDS: METOPROLOL SUCCINATE 25 MG TAB.ER.24H PO SCH (08:53)
[2018-01-01 13:55] VITALS: BP 128/86
[2018-01-01 15:32] LABS: TROPONIN I 0.022 ng/mL (0.000-0.045)
[2018-01-01] MEDS ORDERED: FUROSEMIDE 40 MG/4 ML IV ONE (17:30)
[2018-01-01 19:03] VITALS: BP 109/77
[2018-01-01] MEDS: ATORVASTATIN 10 MG TABLET PO SCH (20:21)
[2018-01-01] MEDS: GABAPENTIN 400 MG CAPSULE PO SCH (20:21)
[2018-01-02 01:08] VITALS: BP 118/81
[2018-01-02 07:55] VITALS: BP 145/96
[2018-01-02] MEDS: SENNA/DOCUSATE TABLET PO SCH (09:00)
[2018-01-02] MEDS: METOPROLOL SUCCINATE 25 MG TAB.ER.24H PO SCH (09:27)
[2018-01-02] MEDS: GABAPENTIN 300 MG CAPSULE PO SCH (09:28)
[2018-01-02] MEDS: SODIUM CHLORIDE NASAL SPRAY 45ML BOTTLE NAS SCH ×2 (09:28→22:07)
[2018-01-02] MEDS: FERROUS SULFATE 325 MG TABLET PO SCH ×2 (09:29→22:06)
[2018-01-02] MEDS: FLUOXETINE HCL 20 MG CAPSULE PO SCH (09:30)
[2018-01-02] MEDS: ASPIRIN 81 MG TABLET EC PO SCH (09:31)
[2018-01-02] MEDS: AMLODIPINE 5 MG TABLET PO SCH (09:31)
[2018-01-02] MEDS: FUROSEMIDE 20 MG TABLET PO SCH (09:32)
[2018-01-02] MEDS: ALLOPURINOL 100 MG TABLET PO SCH (09:32)
[2018-01-02] MEDS: RIVAROXABAN 15 MG TABLET PO SCH (09:33)
[2018-01-02 14:00] VITALS: BP 91/58
[2018-01-02 19:13] VITALS: BP 120/68
[2018-01-02] MEDS: ATORVASTATIN 10 MG TABLET PO SCH (22:06)
[2018-01-02] MEDS: GABAPENTIN 400 MG CAPSULE PO SCH (22:06)
[2018-01-03 01:14] VITALS: BP 114/76
[2018-01-03 07:00] VITALS: BP 113/72
[2018-01-03] MEDS: SODIUM CHLORIDE NASAL SPRAY 45ML BOTTLE NAS SCH ×2 (09:00→21:08)
[2018-01-03] MEDS: FLUOXETINE HCL 20 MG CAPSULE PO SCH (09:00)
[2018-01-03] MEDS: ASPIRIN 81 MG TABLET EC PO SCH (09:21)
[2018-01-03] MEDS: AMLODIPINE 5 MG TABLET PO SCH (09:21)
[2018-01-03] MEDS: METOPROLOL SUCCINATE 25 MG TAB.ER.24H PO SCH (09:21)
[2018-01-03] MEDS: FERROUS SULFATE 325 MG TABLET PO SCH ×2 (09:21→21:08)
[2018-01-03] MEDS: SENNA/DOCUSATE TABLET PO SCH (09:21)
[2018-01-03] MEDS: GABAPENTIN 300 MG CAPSULE PO SCH (09:21)
[2018-01-03] MEDS: RIVAROXABAN 15 MG TABLET PO SCH (09:22)
[2018-01-03] MEDS: ALLOPURINOL 100 MG TABLET PO SCH (09:22)
[2018-01-03] MEDS: FUROSEMIDE 20 MG TABLET PO SCH (09:22)
[2018-01-03 13:21] VITALS: BP 131/72
[2018-01-03 19:10] VITALS: BP 127/76
[2018-01-03] MEDS: GABAPENTIN 400 MG CAPSULE PO SCH (21:07)
[2018-01-03] MEDS: ATORVASTATIN 10 MG TABLET PO SCH (21:07)
[2018-01-04 02:41] VITALS: BP 117/70
[2018-01-04] MEDS: FLUOXETINE HCL 20 MG CAPSULE PO SCH (08:35)
[2018-01-04] MEDS: GABAPENTIN 300 MG CAPSULE PO SCH (08:35)
[2018-01-04] MEDS: AMLODIPINE 5 MG TABLET PO SCH (08:36)
[2018-01-04] MEDS: ASPIRIN 81 MG TABLET EC PO SCH (08:36)
[2018-01-04] MEDS: FERROUS SULFATE 325 MG TABLET PO SCH ×2 (08:36→21:58)
[2018-01-04] MEDS: METOPROLOL SUCCINATE 25 MG TAB.ER.24H PO SCH (08:36)
[2018-01-04] MEDS: SENNA/DOCUSATE TABLET PO SCH (08:36)
[2018-01-04] MEDS: FUROSEMIDE 20 MG TABLET PO SCH (08:36)
[2018-01-04] MEDS: ALLOPURINOL 100 MG TABLET PO SCH (08:36)
[2018-01-04] MEDS: RIVAROXABAN 15 MG TABLET PO SCH (08:36)
[2018-01-04] MEDS: SODIUM CHLORIDE NASAL SPRAY 45ML BOTTLE NAS SCH ×2 (09:00→21:58)
[2018-01-04 09:15] VITALS: BP 140/85
[2018-01-04 13:57] VITALS: BP 115/55
[2018-01-04 21:26] VITALS: BP 127/74
[2018-01-04] MEDS: GABAPENTIN 400 MG CAPSULE PO SCH (21:59)
[2018-01-04] MEDS: ATORVASTATIN 10 MG TABLET PO SCH (21:59)
[2018-01-05 03:59] VITALS: BP 118/83
[2018-01-05 07:45] VITALS: BP 128/92
[2018-01-05] MEDS: GABAPENTIN 300 MG CAPSULE PO SCH (08:57)
[2018-01-05] MEDS: ASPIRIN 81 MG TABLET EC PO SCH (08:58)
[2018-01-05] MEDS: ALLOPURINOL 100 MG TABLET PO SCH (08:58)
[2018-01-05] MEDS: FLUOXETINE HCL 20 MG CAPSULE PO SCH (08:59)
[2018-01-05] MEDS: FUROSEMIDE 20 MG TABLET PO SCH (08:59)
[2018-01-05] MEDS: SENNA/DOCUSATE TABLET PO SCH (08:59)
[2018-01-05] MEDS: RIVAROXABAN 15 MG TABLET PO SCH (09:00)
[2018-01-05] MEDS: FERROUS SULFATE 325 MG TABLET PO SCH ×2 (09:00→21:45)
[2018-01-05] MEDS: METOPROLOL SUCCINATE 25 MG TAB.ER.24H PO SCH (09:00)
[2018-01-05] MEDS: AMLODIPINE 5 MG TABLET PO SCH (09:00)
[2018-01-05] MEDS: SODIUM CHLORIDE NASAL SPRAY 45ML BOTTLE NAS SCH ×2 (09:02→21:45)
[2018-01-05 14:15] VITALS: BP 116/77
[2018-01-05] MEDS: ATORVASTATIN 10 MG TABLET PO SCH (21:42)
[2018-01-05] MEDS: GABAPENTIN 400 MG CAPSULE PO SCH (21:45)
[2018-01-05 22:36] VITALS: BP 116/83
[2018-01-06 02:52] VITALS: BP 120/83
[2018-01-06 06:57] VITALS: BP 123/84
[2018-01-06] MEDS: SENNA/DOCUSATE TABLET PO SCH (09:00)
[2018-01-06] MEDS: AMLODIPINE 5 MG TABLET PO SCH (09:26)
[2018-01-06] MEDS: FERROUS SULFATE 325 MG TABLET PO SCH ×2 (09:26→21:23)
[2018-01-06] MEDS: FUROSEMIDE 20 MG TABLET PO SCH (09:26)
[2018-01-06] MEDS: GABAPENTIN 300 MG CAPSULE PO SCH (09:26)
[2018-01-06] MEDS: RIVAROXABAN 15 MG TABLET PO SCH (09:26)
[2018-01-06] MEDS: FLUOXETINE HCL 20 MG CAPSULE PO SCH (09:27)
[2018-01-06] MEDS: ALLOPURINOL 100 MG TABLET PO SCH (09:27)
[2018-01-06] MEDS: METOPROLOL SUCCINATE 25 MG TAB.ER.24H PO SCH (09:27)
[2018-01-06] MEDS: ASPIRIN 81 MG TABLET EC PO SCH (09:27)
[2018-01-06] MEDS: SODIUM CHLORIDE NASAL SPRAY 45ML BOTTLE NAS SCH ×2 (09:29→21:23)
[2018-01-06 14:10] VITALS: BP 135/82
[2018-01-06 18:31] VITALS: BP 124/78
[2018-01-06] MEDS: GABAPENTIN 400 MG CAPSULE PO SCH (21:23)
[2018-01-06] MEDS: ATORVASTATIN 10 MG TABLET PO SCH (21:23)
[2018-01-07 01:25] VITALS: BP 120/79
[2018-01-07 07:09] VITALS: BP 106/81
[2018-01-07] MEDS: SENNA/DOCUSATE TABLET PO SCH (09:00)
[2018-01-07] MEDS: FUROSEMIDE 20 MG TABLET PO SCH (09:14)
[2018-01-07] MEDS: ASPIRIN 81 MG TABLET EC PO SCH (09:14)
[2018-01-07] MEDS: SODIUM CHLORIDE NASAL SPRAY 45ML BOTTLE NAS SCH ×2 (09:14→19:40)
[2018-01-07] MEDS: FERROUS SULFATE 325 MG TABLET PO SCH ×2 (09:14→19:41)
[2018-01-07] MEDS: GABAPENTIN 300 MG CAPSULE PO SCH (09:15)
[2018-01-07] MEDS: FLUOXETINE HCL 20 MG CAPSULE PO SCH (09:15)
[2018-01-07] MEDS: AMLODIPINE 5 MG TABLET PO SCH (09:15)
[2018-01-07] MEDS: RIVAROXABAN 15 MG TABLET PO SCH (09:16)
[2018-01-07] MEDS: ALLOPURINOL 100 MG TABLET PO SCH (09:16)
[2018-01-07] MEDS: METOPROLOL SUCCINATE 25 MG TAB.ER.24H PO SCH (09:16)
[2018-01-07 13:51] VITALS: BP 118/79
[2018-01-07 19:41] VITALS: BP 130/90
[2018-01-07] MEDS: ATORVASTATIN 10 MG TABLET PO SCH (19:41)
[2018-01-07] MEDS: GABAPENTIN 400 MG CAPSULE PO SCH (19:41)
[2018-01-08 04:04] VITALS: BP 133/79
[2018-01-08 06:36] VITALS: BP 119/79
[2018-01-08] MEDS: ASPIRIN 81 MG TABLET EC PO SCH (08:54)
[2018-01-08] MEDS: FUROSEMIDE 20 MG TABLET PO SCH (08:54)
[2018-01-08] MEDS: SODIUM CHLORIDE NASAL SPRAY 45ML BOTTLE NAS SCH ×2 (08:54→21:01)
[2018-01-08] MEDS: FERROUS SULFATE 325 MG TABLET PO SCH ×2 (08:54→21:00)
[2018-01-08] MEDS: FLUOXETINE HCL 20 MG CAPSULE PO SCH (08:55)
[2018-01-08] MEDS: AMLODIPINE 5 MG TABLET PO SCH (08:55)
[2018-01-08] MEDS: SENNA/DOCUSATE TABLET PO SCH (08:55)
[2018-01-08] MEDS: RIVAROXABAN 15 MG TABLET PO SCH (08:55)
[2018-01-08] MEDS: GABAPENTIN 300 MG CAPSULE PO SCH (08:55)
[2018-01-08] MEDS: METOPROLOL SUCCINATE 25 MG TAB.ER.24H PO SCH (08:55)
[2018-01-08] MEDS: ALLOPURINOL 100 MG TABLET PO SCH (08:56)
[2018-01-08 12:23] VITALS: BP 107/68
[2018-01-08 19:42] VITALS: BP 153/91
[2018-01-08] MEDS: GABAPENTIN 400 MG CAPSULE PO SCH (21:01)
[2018-01-08] MEDS: ATORVASTATIN 10 MG TABLET PO SCH (21:08)
[2018-01-09 01:40] VITALS: BP 115/83
[2018-01-09 07:49] VITALS: BP 144/83
[2018-01-09] MEDS: GABAPENTIN 300 MG CAPSULE PO SCH ×2 (09:00→09:36)
[2018-01-09] MEDS: FERROUS SULFATE 325 MG TABLET PO SCH ×3 (09:00→20:02)
[2018-01-09] MEDS: ALLOPURINOL 100 MG TABLET PO SCH ×2 (09:00→09:37)
[2018-01-09] MEDS: AMLODIPINE 5 MG TABLET PO SCH ×2 (09:00→09:36)
[2018-01-09] MEDS: SENNA/DOCUSATE TABLET PO SCH (09:00)
[2018-01-09] MEDS: FLUOXETINE HCL 20 MG CAPSULE PO SCH ×2 (09:00→09:36)
[2018-01-09] MEDS: FUROSEMIDE 20 MG TABLET PO SCH ×2 (09:00→09:36)
[2018-01-09] MEDS: SODIUM CHLORIDE NASAL SPRAY 45ML BOTTLE NAS SCH ×3 (09:00→20:02)
[2018-01-09] MEDS: METOPROLOL SUCCINATE 25 MG TAB.ER.24H PO SCH ×2 (09:00→09:36)
[2018-01-09] MEDS: RIVAROXABAN 15 MG TABLET PO SCH ×2 (09:00→09:36)
[2018-01-09] MEDS: ASPIRIN 81 MG TABLET EC PO SCH ×2 (09:00→09:36)
[2018-01-09 14:30] VITALS: BP 132/88
[2018-01-09] MEDS ORDERED: ALBUTEROL SULFATE 2.5 MG/3 ML NPPB PRN (17:30)
[2018-01-09 20:00] VITALS: BP 133/85
[2018-01-09] MEDS: ATORVASTATIN 10 MG TABLET PO SCH (20:02)
[2018-01-09] MEDS: GABAPENTIN 400 MG CAPSULE PO SCH (20:02)
[2018-01-10 02:00] VITALS: BP 124/77
[2018-01-10 07:46] VITALS: BP 133/92
[2018-01-10] MEDS: SODIUM CHLORIDE NASAL SPRAY 45ML BOTTLE NAS SCH ×2 (09:00→22:11)
[2018-01-10] MEDS: GABAPENTIN 300 MG CAPSULE PO SCH (09:19)
[2018-01-10] MEDS: METOPROLOL SUCCINATE 25 MG TAB.ER.24H PO SCH (09:20)
[2018-01-10] MEDS: RIVAROXABAN 15 MG TABLET PO SCH (09:20)
[2018-01-10] MEDS: SENNA/DOCUSATE TABLET PO SCH (09:20)
[2018-01-10] MEDS: FUROSEMIDE 20 MG TABLET PO SCH (09:20)
[2018-01-10] MEDS: AMLODIPINE 5 MG TABLET PO SCH (09:20)
[2018-01-10] MEDS: FLUOXETINE HCL 20 MG CAPSULE PO SCH (09:20)
[2018-01-10] MEDS: ASPIRIN 81 MG TABLET EC PO SCH (09:21)
[2018-01-10] MEDS: FERROUS SULFATE 325 MG TABLET PO SCH ×2 (09:21→22:04)
[2018-01-10] MEDS: ALLOPURINOL 100 MG TABLET PO SCH (09:25)
[2018-01-10 13:40] VITALS: BP 158/85
[2018-01-10 18:50] VITALS: BP 117/77
[2018-01-10] MEDS: ATORVASTATIN 10 MG TABLET PO SCH (22:04)
[2018-01-10] MEDS: GABAPENTIN 400 MG CAPSULE PO SCH (22:08)
[2018-01-11 01:40] VITALS: BP 108/70
[2018-01-11 07:41] VITALS: BP 141/87
[2018-01-11] MEDS: SODIUM CHLORIDE NASAL SPRAY 45ML BOTTLE NAS SCH (09:00)
[2018-01-11] MEDS: SENNA/DOCUSATE TABLET PO SCH (09:00)
[2018-01-11] MEDS: RIVAROXABAN 15 MG TABLET PO SCH (09:16)
[2018-01-11] MEDS: FUROSEMIDE 20 MG TABLET PO SCH (09:16)
[2018-01-11] MEDS: ASPIRIN 81 MG TABLET EC PO SCH (09:16)
[2018-01-11] MEDS: AMLODIPINE 5 MG TABLET PO SCH (09:16)
[2018-01-11] MEDS: GABAPENTIN 300 MG CAPSULE PO SCH (09:16)
[2018-01-11] MEDS: FLUOXETINE HCL 20 MG CAPSULE PO SCH (09:16)
[2018-01-11] MEDS: METOPROLOL SUCCINATE 25 MG TAB.ER.24H PO SCH (09:16)
[2018-01-11] MEDS: FERROUS SULFATE 325 MG TABLET PO SCH (09:17)
[2018-01-11] MEDS: ALLOPURINOL 100 MG TABLET PO SCH (09:17)
[2018-01-11 13:07] VITALS: BP 123/83
[2018-01-11] MEDS ORDERED: RIVA15TA PO (14:28)
[2018-01-11] MEDS ORDERED: GABA300C10 PO (14:28)
[2018-01-11] MEDS ORDERED: GABA-827 PO (14:28)
[2018-01-11] MEDS ORDERED: ATOR10TA9 PO (14:28)
[2018-01-11] MEDS ORDERED: ACET325T14 PO (14:28)
== END 2018-01-11 17:23 | disposition home health service (06) | DRG 291 ==
LOC: ED 11:40 → EDIP 11:46 → ED 12:17 → CCU 14:29 → 3NE 12-08 18:50
PROVIDERS: ADMIT Internal Medicine; ATTEND Internal Medicine
PROC: 5A09357 Assistance with Respiratory Ventilation, Less than 24 Consecutive Hours, Continuous Positive Airway Pressure (ICD-10-PCS; principal; 2017-12-07)
DX: I13.0 Hypertensive heart and chronic kidney disease with heart failure and stage 1 through stage 4 chronic kidney disease, or unspecified chronic kidney disease (principal); I50.33 Acute on chronic diastolic (congestive) heart failure; J96.01 Acute respiratory failure with hypoxia; E43 Unspecified severe protein-calorie malnutrition; N17.9 Acute kidney failure, unspecified; D68.59 Other primary thrombophilia; E11.21 Type 2 diabetes mellitus with diabetic nephropathy; E87.0 Hyperosmolality and hypernatremia; R53.2 Functional quadriplegia; E11.42 Type 2 diabetes mellitus with diabetic polyneuropathy; J96.22 Acute and chronic respiratory failure with hypercapnia; J96.21 Acute and chronic respiratory failure with hypoxia; E87.2 Acidosis; J44.1 Chronic obstructive pulmonary disease with (acute) exacerbation; E87.1 Hypo-osmolality and hyponatremia; J98.11 Atelectasis; M86.9 Osteomyelitis, unspecified; Z68.43 Body mass index [BMI] 50.0-59.9, adult; Z68.42 Body mass index [BMI] 45.0-49.9, adult; E11.22 Type 2 diabetes mellitus with diabetic chronic kidney disease; D63.8 Anemia in other chronic diseases classified elsewhere; E66.01 Morbid (severe) obesity due to excess calories; E78.5 Hyperlipidemia, unspecified; F32.9 Major depressive disorder, single episode, unspecified; I25.10 Atherosclerotic heart disease of native coronary artery without angina pectoris; I48.91 Unspecified atrial fibrillation; S81.809A Unspecified open wound, unspecified lower leg, initial encounter; X58.XXXA Exposure to other specified factors, initial encounter; M10.9 Gout, unspecified; K21.9 Gastro-esophageal reflux disease without esophagitis; I27.21 Secondary pulmonary arterial hypertension; N18.3 Chronic kidney disease, stage 3 (moderate); Z72.0 Tobacco use; Z79.01 Long term (current) use of anticoagulants; Z79.82 Long term (current) use of aspirin; Z79.84 Long term (current) use of oral hypoglycemic drugs; Z79.899 Other long term (current) drug therapy; Z82.49 Family history of ischemic heart disease and other diseases of the circulatory system; Z90.710 Acquired absence of both cervix and uterus; Z95.0 Presence of cardiac pacemaker; Y93.89 Activity, other specified; Y92.89 Other specified places as the place of occurrence of the external cause; Y99.8 Other external cause status
CPT/HCPCS: 36415; 36600; 51702; 71045; 71046; 80048; 80053; 81001; 82040; 82565; 82803; 82962; 83605; 83735; 83880; 84100; 84443; 84484; 85025; 85610; 85730; 86480; 87081; 87086; 93005; 93922; 94660; 96372; 96374; J1650; J1940; J2405; J2930; J7030; J7512

== ENCOUNTER 2018-01-14 19:19 | Inpatient (IN) | payer MEDICARE, OTHER ==
[~2018-01-14] VITALS: Ht 157.5 cm; Wt 124.2 kg
[~2018-01-14 19:19] MED LIST changes: +ACET325T14 PO; +ATOR10TA9 PO; +CEPH-368 PO; +GABA-827 PO; +GABA300C10 PO; +HYDR-3237 PO; +POTA20TA89 PO; +RIVA15TA PO
[2018-01-14] MEDS ORDERED: SODIUM CHLORIDE 0.9% 1,000 ML IV ONE (19:26)
[2018-01-14] MEDS ORDERED: SODIUM CHLORIDE 0.9% 1,000ML IVBOLUS ONE (19:30)
[2018-01-14] MEDS ORDERED: SODIUM CHLORIDE FLUSH 10ML SYR IVF ONE (19:30)
[2018-01-14] MEDS ORDERED: PLEASE ENTER HEIGHT AND WEIGHT MC SCH (20:00)
[2018-01-14 20:16] LABS: BASOPHILS # (AUTO) 0.02 x10^3/uL (0-0.1); BASOPHILS % (AUTO) 1 % (0-1); EOSINOPHILS # (AUTO) 0.02 x10^3/uL (0-0.4); EOSINOPHILS % (AUTO) 0 % (1-7); LYMPHOCYTES # (AUTO) 0.56 x10^3/uL (1-3.4); LYMPHOCYTES % (AUTO) 14 % (22-44); MD NO; MEAN CORPUSCULAR HEMOGLOBIN 28.3 pg (27.0-34.8); MEAN CORPUSCULAR HGB CONC 30.9 g/dL (32.4-35.8); MEAN CORPUSCULAR VOLUME 91.6 fL (80-100); MONOCYTES # (AUTO) 0.25 x10^3/uL (0.2-0.8); MONOCYTES % (AUTO) 6 % (2-9); NEUTROPHILS # (AUTO) 3.12 x10^3/uL (1.8-6.8); NEUTROPHILS % (AUTO) 79 % (42-75); PLATELET COUNT 214 x10^3/uL (130-400); RED BLOOD COUNT 3.47 x10^6/uL (3.82-5.3); RED CELL DISTRIBUTION WIDTH 19.5 % (9.6-15.2)
[2018-01-14 20:22] LABS: INTERNATIONAL NORMALIZED RATIO 1.25 (0.93-1.1); PROTHROMBIN TIME 12.9 Seconds (9.6-11.5)
[2018-01-14 20:25] LABS: ALANINE AMINOTRANSFERASE 13 U/L (12-78); ALBUMIN 2.8 g/dL (3.4-5.0); ANION GAP 5 mmol/L (5-15); CALCIUM 8.7 mg/dL (8.5-10.1); CHLORIDE 107 mmol/L (98-107)
[2018-01-14 20:28] LABS: ALKALINE PHOSPHATASE 104 U/L (45-117); BILIRUBIN,TOTAL 0.4 mg/dL (0.2-1.0); TOTAL PROTEIN 7.2 g/dL (6.4-8.2)
[2018-01-14] MEDS ORDERED: SODIUM CHLORIDE FLUSH 10ML SYR IVF PRN (21:00)
[2018-01-14] MEDS ORDERED: hydrALAzine 20 MG/ML, 1ML IVPush PRN (21:30)
[2018-01-14] MEDS ORDERED: ONDANSETRON 2MG/ML, 2ML IVPush PRN (21:30)
[2018-01-14] MEDS ORDERED: ACETAMINOPHEN 325 MG TABLET PO PRN (21:30)
[2018-01-14] MEDS: SODIUM CHLORIDE 0.9% 1,000 ML IV SCH (22:39)
[2018-01-14] MEDS ORDERED: HEPARIN 5,000 UNITS/ML, 1ML ONE (22:52)
[2018-01-14] MEDS: HEPARIN 5,000 UNITS/ML, 1ML SQ SCH (23:00)
[2018-01-14 23:01] LABS: CULTURE INDICATED? YES; MICROSCOPIC INDICATED
[2018-01-15] MEDS ORDERED: CEFTRIAXONE PMX 1GM/50ML 50 ML IV ONE (00:30)
[2018-01-15 00:44] LABS: TROPONIN I 0.026 ng/mL (0.000-0.045)
[2018-01-15] MEDS ORDERED: CEFTRIAXONE PMX 1GM/50ML 50 ML ONE (00:46)
[2018-01-15] MEDS ORDERED: ALBUTEROL SULFATE 2.5 MG/3 ML NPPB PRN (01:00)
[2018-01-15 05:04] LABS: BASOPHILS # (AUTO) 0.03 x10^3/uL (0-0.1); BASOPHILS % (AUTO) 1 % (0-1); EOSINOPHILS # (AUTO) 0.05 x10^3/uL (0-0.4); EOSINOPHILS % (AUTO) 1 % (1-7); LYMPHOCYTES # (AUTO) 0.68 x10^3/uL (1-3.4); LYMPHOCYTES % (AUTO) 19 % (22-44); MD NO; MEAN CORPUSCULAR HGB CONC 31.4 g/dL (32.4-35.8); MEAN CORPUSCULAR VOLUME 92.6 fL (80-100); MEAN PLATELET VOLUME 9.1 fL (7.4-10.4); MONOCYTES # (AUTO) 0.27 x10^3/uL (0.2-0.8); MONOCYTES % (AUTO) 8 % (2-9); NEUTROPHILS # (AUTO) 2.52 x10^3/uL (1.8-6.8); NEUTROPHILS % (AUTO) 71 % (42-75); PLATELET COUNT 208 x10^3/uL (130-400); RED BLOOD COUNT 3.55 x10^6/uL (3.82-5.3); RED CELL DISTRIBUTION WIDTH 19.2 % (9.6-15.2)
[2018-01-15 05:07] LABS: ALANINE AMINOTRANSFERASE 15 U/L (12-78); ALBUMIN 2.8 g/dL (3.4-5.0); ANION GAP 4 mmol/L (5-15); CALCIUM 8.7 mg/dL (8.5-10.1); CHLORIDE 110 mmol/L (98-107); CREATININE 2.14 mg/dL (0.55-1.02)
[2018-01-15 05:09] LABS: ALKALINE PHOSPHATASE 109 U/L (45-117); BILIRUBIN,TOTAL 0.3 mg/dL (0.2-1.0); TOTAL PROTEIN 7.2 g/dL (6.4-8.2)
[2018-01-15 06:30] VITALS: BP 131/90
[2018-01-15] MEDS: SODIUM CHLORIDE 0.9% 1,000 ML IV SCH ×2 (07:21→17:39)
[2018-01-15] MEDS: HEPARIN 5,000 UNITS/ML, 1ML SQ SCH ×2 (13:24→21:25)
[2018-01-15] MEDS ORDERED: VANCOMYCIN PER PHARMACY MC PRN (20:00)
[2018-01-15] MEDS ORDERED: VANCOMYCIN 2,300 MG in SODIUM CHLORIDE 0.9% 500 ML IV ONE (20:30)
[2018-01-15] MEDS ORDERED: PHARMACOKINETIC MONITORING MC PRN (20:30)
[2018-01-15] MEDS ORDERED: PHARMACOKINETIC CONSULTATION MC ONE (20:30)
[2018-01-16] MEDS: CEFTRIAXONE PMX 1GM/50ML 50 ML IV SCH (01:14)
[2018-01-16 04:12] VITALS: BP 112/90
[2018-01-16 04:29] LABS: BASOPHILS # (AUTO) 0.03 x10^3/uL (0-0.1); BASOPHILS % (AUTO) 1 % (0-1); EOSINOPHILS # (AUTO) 0.19 x10^3/uL (0-0.4); EOSINOPHILS % (AUTO) 3 % (1-7); LYMPHOCYTES # (AUTO) 0.53 x10^3/uL (1-3.4); LYMPHOCYTES % (AUTO) 9 % (22-44); MD NO; MEAN CORPUSCULAR HEMOGLOBIN 28.3 pg (27.0-34.8); MEAN CORPUSCULAR HGB CONC 30.5 g/dL (32.4-35.8); MEAN CORPUSCULAR VOLUME 92.6 fL (80-100); MEAN PLATELET VOLUME 8.8 fL (7.4-10.4); MONOCYTES # (AUTO) 0.37 x10^3/uL (0.2-0.8); MONOCYTES % (AUTO) 6 % (2-9); NEUTROPHILS % (AUTO) 81 % (42-75); PLATELET COUNT 168 x10^3/uL (130-400); RED BLOOD COUNT 3.54 x10^6/uL (3.82-5.3); RED CELL DISTRIBUTION WIDTH 20.2 % (9.6-15.2)
[2018-01-16 04:34] LABS: ALBUMIN 2.6 g/dL (3.4-5.0); ANION GAP 3 mmol/L (5-15); CALCIUM 8.4 mg/dL (8.5-10.1); CHLORIDE 112 mmol/L (98-107)
[2018-01-16 04:37] LABS: ALANINE AMINOTRANSFERASE 12 U/L (12-78); ALKALINE PHOSPHATASE 93 U/L (45-117); BILIRUBIN,TOTAL 0.3 mg/dL (0.2-1.0); CREATININE 1.84 mg/dL (0.55-1.02); TOTAL PROTEIN 6.7 g/dL (6.4-8.2)
[2018-01-16] MEDS: FLUOXETINE HCL 20 MG CAPSULE PO SCH (08:28)
[2018-01-16] MEDS: RIVAROXABAN 15 MG TABLET PO SCH (08:29)
[2018-01-16] MEDS: FUROSEMIDE 40 MG TABLET PO SCH (08:29)
[2018-01-16] MEDS: ALLOPURINOL 100 MG TABLET PO SCH (08:29)
[2018-01-16] MEDS: METOPROLOL SUCCINATE 25 MG TAB.ER.24H PO SCH (08:29)
[2018-01-16 14:00] VITALS: BP 113/79
[2018-01-16] MEDS ORDERED: ONDANSETRON 2MG/ML, 2ML IVPush PRN (16:44)
[2018-01-16 16:51] VITALS: BP 120/81
[2018-01-16] MEDS ORDERED: ONDANSETRON ODT 4 MG PO PRN (17:00)
[2018-01-16 19:18] VITALS: BP 138/85
[2018-01-16] MEDS: ATORVASTATIN 10 MG TABLET PO SCH (20:21)
[2018-01-17] MEDS: CEFTRIAXONE PMX 1GM/50ML 50 ML IV SCH (01:02)
[2018-01-17 05:05] LABS: BASOPHILS # (AUTO) 0.03 x10^3/uL (0-0.1); BASOPHILS % (AUTO) 1 % (0-1); EOSINOPHILS # (AUTO) 0.19 x10^3/uL (0-0.4); EOSINOPHILS % (AUTO) 5 % (1-7); LYMPHOCYTES # (AUTO) 0.59 x10^3/uL (1-3.4); LYMPHOCYTES % (AUTO) 14 % (22-44); MD NO; MEAN CORPUSCULAR HEMOGLOBIN 28.4 pg (27.0-34.8); MEAN CORPUSCULAR HGB CONC 30.4 g/dL (32.4-35.8); MEAN CORPUSCULAR VOLUME 93.2 fL (80-100); MONOCYTES # (AUTO) 0.28 x10^3/uL (0.2-0.8); MONOCYTES % (AUTO) 7 % (2-9); NEUTROPHILS % (AUTO) 74 % (42-75); PLATELET COUNT 169 x10^3/uL (130-400); RED BLOOD COUNT 3.55 x10^6/uL (3.82-5.3); RED CELL DISTRIBUTION WIDTH 20.1 % (9.6-15.2)
[2018-01-17 05:09] LABS: CALCIUM 8.7 mg/dL (8.5-10.1); CHLORIDE 112 mmol/L (98-107)
[2018-01-17 05:15] LABS: ALANINE AMINOTRANSFERASE 13 U/L (12-78); ALBUMIN 2.6 g/dL (3.4-5.0); ALKALINE PHOSPHATASE 92 U/L (45-117); ANION GAP 7 mmol/L (5-15); BILIRUBIN,TOTAL 0.4 mg/dL (0.2-1.0); CREATININE 1.69 mg/dL (0.55-1.02); TOTAL PROTEIN 6.7 g/dL (6.4-8.2)
[2018-01-17 07:38] VITALS: BP 110/83
[2018-01-17] MEDS: METOPROLOL SUCCINATE 25 MG TAB.ER.24H PO SCH (08:28)
[2018-01-17] MEDS: FLUOXETINE HCL 20 MG CAPSULE PO SCH (08:28)
[2018-01-17] MEDS: FUROSEMIDE 40 MG TABLET PO SCH (08:28)
[2018-01-17] MEDS: RIVAROXABAN 15 MG TABLET PO SCH (08:28)
[2018-01-17] MEDS: ALLOPURINOL 100 MG TABLET PO SCH (08:28)
[2018-01-17 15:00] VITALS: BP 104/78
[2018-01-17 19:18] VITALS: BP 124/83
[2018-01-17] MEDS: ATORVASTATIN 10 MG TABLET PO SCH (21:04)
[2018-01-17] MEDS ORDERED: VANCOMYCIN 1,500 MG in SODIUM CHLORIDE 0.9% 250 ML IV SCH (22:00)
[2018-01-18] MEDS: CEFTRIAXONE PMX 1GM/50ML 50 ML IV SCH (01:08)
[2018-01-18 01:56] VITALS: BP 122/86
[2018-01-18] MEDS ORDERED: ALBUTEROL/IPRATROPIUM 2.5MG/0.5MG, 3 ML ONE (06:09)
[2018-01-18] MEDS ORDERED: ALBUTEROL/IPRATROPIUM 2.5MG/0.5MG, 3 ML NPPB PRN (06:30)
[2018-01-18 06:50] VITALS: BP 112/73
[2018-01-18] MEDS ORDERED: SODIUM BICARBONATE 1 MEQ/ML, 50ML VIAL IVPush SCH (08:00)
[2018-01-18] MEDS ORDERED: SODIUM BICARBONATE 8.4% 150 MEQ in DEXTROSE 5% 1,000 ML IV SCH (08:00)
[2018-01-18 08:03] LABS: ALBUMIN 2.8 g/dL (3.4-5.0); ANION GAP 3 mmol/L (5-15); CALCIUM 8.5 mg/dL (8.5-10.1); CHLORIDE 109 mmol/L (98-107)
[2018-01-18 08:05] LABS: MEAN CORPUSCULAR HEMOGLOBIN 27.7 pg (27.0-34.8); MEAN CORPUSCULAR VOLUME 92.4 fL (80-100); PLATELET COUNT 188 x10^3/uL (130-400); RED BLOOD COUNT 3.84 x10^6/uL (3.82-5.3); RED CELL DISTRIBUTION WIDTH 19.4 % (9.6-15.2)
[2018-01-18 08:07] LABS: ALANINE AMINOTRANSFERASE 14 U/L (12-78); ALKALINE PHOSPHATASE 96 U/L (45-117); BILIRUBIN,TOTAL 0.4 mg/dL (0.2-1.0); CREATININE 1.75 mg/dL (0.55-1.02); TOTAL PROTEIN 7.1 g/dL (6.4-8.2)
[2018-01-18 08:08] LABS: BASOPHILS # (AUTO) 0.01 x10^3/uL (0-0.1); BASOPHILS % (AUTO) 0 % (0-1); EOSINOPHILS % (AUTO) 2 % (1-7); LYMPHOCYTES % (AUTO) 11 % (22-44); MD SCAN; MONOCYTES # (AUTO) 0.22 x10^3/uL (0.2-0.8); MONOCYTES % (AUTO) 4 % (2-9); NEUTROPHILS % (AUTO) 83 % (42-75)
[2018-01-18] MEDS ORDERED: NALOXONE 0.4 MG/ML, 1ML ONE (08:11)
[2018-01-18] MEDS ORDERED: FUROSEMIDE 40 MG/4 ML ONE (08:12)
[2018-01-18 08:25] VITALS: BP 105/76
[2018-01-18] MEDS ORDERED: NALOXONE 0.4 MG/ML, 1ML IVPush ONE (08:30)
[2018-01-18] MEDS ORDERED: FUROSEMIDE 40 MG/4 ML IV ONE (08:30)
[2018-01-18] MEDS ORDERED: SODIUM BICARB 8.4%, 50ML SYRINGE IVPush SCH (08:30)
[2018-01-18] MEDS: ALLOPURINOL 100 MG TABLET PO SCH (09:54)
[2018-01-18] MEDS: RIVAROXABAN 15 MG TABLET PO SCH (09:54)
[2018-01-18] MEDS: AcetaZOLAMIDE INJ 500 MG IVPush SCH ×2 (09:54→20:30)
[2018-01-18] MEDS: FLUOXETINE HCL 20 MG CAPSULE PO SCH (09:54)
[2018-01-18] MEDS: METOPROLOL SUCCINATE 25 MG TAB.ER.24H PO SCH (09:54)
[2018-01-18 17:25] LABS: OCCULT BLOOD NEGATIVE (NEGATIVE)
[2018-01-18] MEDS: ATORVASTATIN 10 MG TABLET PO SCH (20:30)
[2018-01-19] MEDS: CEFTRIAXONE PMX 1GM/50ML 50 ML IV SCH (00:55)
[2018-01-19 04:13] LABS: MEAN CORPUSCULAR HEMOGLOBIN 27.9 pg (27.0-34.8); MEAN CORPUSCULAR VOLUME 94.1 fL (80-100); MEAN PLATELET VOLUME 9.4 fL (7.4-10.4); PLATELET COUNT 198 x10^3/uL (130-400); RED BLOOD COUNT 3.83 x10^6/uL (3.82-5.3); RED CELL DISTRIBUTION WIDTH 19.5 % (9.6-15.2)
[2018-01-19 04:25] LABS: ANION GAP 5 mmol/L (5-15); CALCIUM 8.4 mg/dL (8.5-10.1); CHLORIDE 109 mmol/L (98-107); CREATININE 1.84 mg/dL (0.55-1.02)
[2018-01-19 04:34] LABS: MEAN CORPUSCULAR HGB CONC 29.6 g/dL (32.4-35.8)
[2018-01-19 04:36] LABS: BASOPHILS % (AUTO) 0 % (0-1); EOSINOPHILS # (AUTO) 0.12 x10^3/uL (0-0.4); EOSINOPHILS % (AUTO) 2 % (1-7); LYMPHOCYTES % (AUTO) 12 % (22-44); MD SCAN; MONOCYTES # (AUTO) 0.31 x10^3/uL (0.2-0.8); MONOCYTES % (AUTO) 5 % (2-9); NEUTROPHILS # (AUTO) 4.81 x10^3/uL (1.8-6.8); NEUTROPHILS % (AUTO) 81 % (42-75)
[2018-01-19 04:37] VITALS: BP 114/62
[2018-01-19] MEDS ORDERED: FUROSEMIDE 40 MG/4 ML IV ONE (05:30)
[2018-01-19 13:04] VITALS: BP 126/84
[2018-01-19 19:22] VITALS: BP 133/88
[2018-01-19] MEDS: MORPHINE SULFATE 4 MG/ML, 1ML IVPush PRN (21:32)
[2018-01-20] MEDS: MORPHINE SULFATE 4 MG/ML, 1ML IVPush PRN (08:56)
[2018-01-20] MEDS ORDERED: morphine SULFATE 125 MG in SODIUM CHLORIDE 0.9% 237.5 ML IV PRN (11:30)
[2018-01-20] MEDS ORDERED: LORazepam 2 MG/ML, 1ML IVPush PRN (11:30)
[2018-01-20] MEDS ORDERED: MORPHINE 30MG/30ML PCA.SYR IV PRN (12:00)
[2018-01-20] MEDS ORDERED: ATROPINE OPHTH SOLN 1%, 2ML MM PRN (20:30)
== END 2018-01-20 21:25 | disposition expired | DRG 91 ==
LOC: ED 20:56 → EDIP 20:57 → SUATTDRO 21:19 → CCU 01-15 06:04 → 4WST 01-16 11:00 → CCU 01-18 08:56 → 3NW 01-19 11:07
PROVIDERS: ADMIT Hospitalist; ATTEND Hospitalist
PROC: 0T9B70Z Drainage of Bladder with Drainage Device, Via Natural or Artificial Opening (ICD-10-PCS; principal; 2018-01-14)
PROC: 5A09357 Assistance with Respiratory Ventilation, Less than 24 Consecutive Hours, Continuous Positive Airway Pressure (ICD-10-PCS; 2018-01-18)
PROC: 5A09357 Assistance with Respiratory Ventilation, Less than 24 Consecutive Hours, Continuous Positive Airway Pressure (ICD-10-PCS; 2018-01-19)
DX: G92 Toxic encephalopathy (principal); J96.20 Acute and chronic respiratory failure, unspecified whether with hypoxia or hypercapnia; E43 Unspecified severe protein-calorie malnutrition; I50.33 Acute on chronic diastolic (congestive) heart failure; D68.69 Other thrombophilia; E11.21 Type 2 diabetes mellitus with diabetic nephropathy; I13.0 Hypertensive heart and chronic kidney disease with heart failure and stage 1 through stage 4 chronic kidney disease, or unspecified chronic kidney disease; E11.42 Type 2 diabetes mellitus with diabetic polyneuropathy; E11.22 Type 2 diabetes mellitus with diabetic chronic kidney disease; R65.10 Systemic inflammatory response syndrome (SIRS) of non-infectious origin without acute organ dysfunction; N39.0 Urinary tract infection, site not specified; Z68.43 Body mass index [BMI] 50.0-59.9, adult; I27.20 Pulmonary hypertension, unspecified; D63.8 Anemia in other chronic diseases classified elsewhere; N18.3 Chronic kidney disease, stage 3 (moderate); K21.9 Gastro-esophageal reflux disease without esophagitis; I25.10 Atherosclerotic heart disease of native coronary artery without angina pectoris; B96.20 Unspecified Escherichia coli [E. coli] as the cause of diseases classified elsewhere; E66.01 Morbid (severe) obesity due to excess calories; E78.5 Hyperlipidemia, unspecified; E86.0 Dehydration; I48.2 Chronic atrial fibrillation; J44.9 Chronic obstructive pulmonary disease, unspecified; Z66 Do not resuscitate; Z90.710 Acquired absence of both cervix and uterus; Z95.0 Presence of cardiac pacemaker; Z99.81 Dependence on supplemental oxygen; Z79.01 Long term (current) use of anticoagulants; Z87.891 Personal history of nicotine dependence
CPT/HCPCS: 36415; 36600; 70450; 71045; 80048; 80053; 81001; 82140; 82272; 82803; 82962; 83605; 83735; 83880; 84100; 84484; 85025; 85610; 85730; 87040; 87077; 87081; 87086; 87186; 93005; 94640; 94660; 99285; J0696; J1644; J1940; J2310; J2405; J3370; J1120; J7030; J7040